=== PATIENT | male | born 2000 | race Caucasian/White ===

== ENCOUNTER 2022-11-10 21:56 | Observation (INO) ==
[2022-11-10] MEDS ORDERED: OPTIRAY 320 500ml IV ONE (22:23)
[2022-11-10 22:40] LABS: Basophils # (auto) 0.02 K/uL (0-0.2); Basophils % (auto) 0.3 %; Eosinophils # (auto) 0.09 K/uL (0-0.50); Eosinophils % (auto) 1.4 %; Hematocrit (blood only) 42.6 % (42.0-52.0); Hemoglobin 15.9 g/dl (14.0-18.0); Immature Granulocytes # (auto) 0.01 K/uL (0.01-0.20); Immature Granulocytes % (auto) 0.2 %; Lymphocytes # (auto) 2.05 K/uL (1.2-3.4); Lymphocytes % (auto) 32.4 %; Mean Corpuscular Hgb Conc 37.3 g/dL (32.0-36.0); Mean Platelet Volume 9.8 fL (9.4-12.4); Monocytes # (auto) 0.46 K/uL (0.11-0.59); Monocytes % (auto) 7.3 %; Neutrophils # (auto) 3.69 K/uL (1.40-6.50); Neutrophils % (auto) 58.4 %; Platelet Count 224 K/uL (130-400); RDW Coefficient of Variation 11.6 % (11.5-14.5); RDW Standard Deviation 34.8 fL (36.4-46.3); Red Blood Count 5.13 M/uL (4.70-6.10); White Blood Count 6.32 K/ul (4.8-10.8)
--- NOTE | 2022-11-10 22:41 | CT Scan Report ---
Exam(s): CT HEAD Without Contrast EXAM: CT Head Without Intravenous Contrast CLINICAL HISTORY: Reason for exam: neuro deficit, acute stroke suspected. TECHNIQUE: Axial computed tomography images of the head/brain without intravenous contrast. CTDI is 139.92 mGy and DLP is 2084.62 mGy-cm. Automated exposure control was utilized for the study. A dose lowering technique was utilized adhering to the principles of ALARA. Multiple repeat scans were performed, due to patient motion. COMPARISON: None. FINDINGS: Brain: No edema or acute infarct. No acute hemorrhage. No abnormal density in the brain parenchyma. Ventricles: No hydrocephalus or midline shift. Bones/joints: No skull fracture. Soft tissues: No scalp hematoma. Sinuses: Clear. Mastoid air cells: No mastoid effusion. IMPRESSION: 1. No acute infarct, bleed, or acute intracranial abnormality. 2. Normal exam. Communications: Call Doctor Stroke Electronically signed by: Lynn Lilly M.D. 11/10/22 22:40 PM
--- NOTE | 2022-11-10 22:52 | CT Scan Report ---
Exam(s): CTA HEAD With Contrast EXAM: CT Angiography Head With Intravenous Contrast CLINICAL HISTORY: Reason for exam: neuro deficit, acute stroke suspected. d/w : speech difficulty, and understanding difficulty now, as well, RUE weakness. TECHNIQUE: Axial computed tomographic angiography images of the head with intravenous contrast. CTDI is 170.81 mGy and DLP is 2632.53 mGy-cm. Automated exposure control was utilized for the study. A dose lowering technique was utilized adhering to the principles of ALARA. MIP reconstructed images were created and reviewed. Mild to moderate motion artifact. CONTRAST: 108 ml optiray 320 COMPARISON: None. FINDINGS: Right internal carotid artery: Patent. Right anterior cerebral artery: Patent. Right middle cerebral artery: Patent. Right posterior cerebral artery: Patent. Right vertebral artery: Patent. Left internal carotid artery: Patent. Left anterior cerebral artery: Patent. Left middle cerebral artery: Patent. Left posterior cerebral artery: Patent. Left vertebral artery: Patent. Basilar artery: Patent. Other: IMPRESSION: 1. No aneurysm or large vessel occlusion. 2. Limited evaluation due to patient motion. Communications: 11/10/22 22:51 Call Doctor Regarding Stroke. A telephone report of the findings was given to and confirmed by Dr. Shaffer on 11/10 22:51 (-04: 00) Electronically signed by: Lynn Lilly M.D. 11/10/22 22:51 PM
--- NOTE | 2022-11-10 22:54 | CT Scan Report ---
Exam(s): CTA NECK With Contrast EXAM: CT Neck With Intravenous Contrast CLINICAL HISTORY: Reason for exam: neuro deficit, acute stroke suspected. TECHNIQUE: Routine carotid CT protocol was performed with intravenous contrast. NASCET criteria using the distal ICAs for comparison were used for evaluation of stenoses. CTDI is 170.81 mGy and DLP is 2632.53 mGy-cm. Automated exposure control was utilized for the study. A dose lowering technique was utilized adhering to the principles of ALARA. CONTRAST: 108 mL Optiray 320 given IV. COMPARISON: None. FINDINGS: VASCULATURE: Right common carotid artery: Patent. Right internal carotid artery: Patent. Right vertebral artery: Patent. Left common carotid artery: Patent. Left internal carotid artery: Patent. Left vertebral artery: Patent. Other: IMPRESSION: 1. No dissection, occlusion, or significant stenosis. 2. d/w DrMarycruz CAROTID STENOSIS REFERENCE USING NASCET CRITERIA: % ICA stenosis = (1 - narrowest ICA diameter/diameter of distal cervical ICA) x 100. Mild - <50% stenosis. Moderate - 50-69% stenosis. Severe - 70-94% stenosis. Near occlusion - 95-99% stenosis. Occluded - 100% stenosis. Communications: Call Doctor Stroke Electronically signed by: Lynn Lilly M.D. 11/10/22 22:53 PM
[2022-11-10 22:59] LABS: Alanine Aminotransferase 17 U/L (7-52); Albumin Globulin Ratio 1.7 (0.9-2); Albumin Level 4.8 gm/dl (3.4-5.0); Alkaline Phosphatase 91 U/L (34-104); Anion Gap 15 (3-11); Aspartate Aminotransferase 18 U/L (13-39); Bilirubin,Total 1.1 mg/dl (0.2-1.0); Blood Urea Nitrogen 13 mg/dl (6-23); Calcium 9.9 mg/dl (8.6-10.3); Carbon Dioxide 21 mmol/L (21-32); Chloride 102 mmol/L (98-107); Est GFR (African American) 136.5 ml/min; Est GFR (Non-African American) 117.8 ml/min; Globulin 2.9 gm/dl (2.5-4.0); Glucose 103 mg/dl (70-99(Fasting)); Magnesium 1.8 mg/dl (1.7-2.4); Sodium 138 mmol/L (136-145); Total Protein 7.7 gm/dl (6.0-8.3)
[2022-11-10 23:04] LABS: Troponin I High Sensitivity 3.1 pg/ml (0-20)
[2022-11-10 23:07] LABS: INR 1.1 (0.9-1.1); Partial Thromboplastin Ratio 0.9; Partial Thromboplastin Time 25.9 Seconds (21.0-31.0); Prothrombin Time 11.9 Seconds (9.0-12.0)
[2022-11-10 23:17] LABS: Appearance Urine Clear (Clear); Bilirubin Urine Negative (Negative); Blood Urine Negative (Negative); Color Urine Yellow; Glucose Urine UA Negative (Negative); Ketones Urine 2+ (Negative); Leukocyte Esterase Urine Negative (Negative); Nitrite Urine Negative (Negative); Protein Urine Negative (Negative); Specific Gravity Urine 1.033 (1.000-1.030); Urobilinogen Urine Negative (Negative)
--- NOTE | 2022-11-10 23:32 | History & Physical Report ---
Date of Service November 10, 2022 Assessment & Plan (1) Combined receptive and expressive aphasia: Plan: 22-year-old male with a history of anxiety admitted to the hospital for stroke rule out with symptoms of expressive and receptive aphasia as well as right upper extremity weakness, status post TNKase. With some improvement in his aphasia and RUE weakness compared to on presentation to the ER. Last known well was 9:15 PM. After ER provider discussed case with [facility] telestroke neurologist Dr. Bourgeois and patient's care discussed with his parents, decision was made to initiate TNKase with some improvement in his symptoms. Some question of complex migraine versus stroke versus other etiology. Per [facility] Telestroke will need MRI brain, EEG, Neuro consult in the morning. No evidence of infectious or metabolic cause. UDS negative save for marijuana, per patient's friend who is in the room no known use today. Ethyl alcohol level negative, quad screen negative. Lipid panel, A1c, Echo with bubble study ordered. Unknown etiology of anion gap, ketonuria; BSG 103 in the ER. Lactate was 3.8, repeat of 1.9 without intervention. No localizable source of infection. (2) RUE weakness: Plan: See above, improved compared to exam per ER provider. (3) Hypokalemia: Plan: K of 3.0 on admission, Given IV repletion, follow up AM labs (4) Anxiety: Plan: History of per patient, not on medications at home. Plan Admission to ICU for monitoring post-TNKase, Neuro consult in AM, MRI and EEG History of Present Illness Chief Complaint: aphasia, RUE weakness, acute onset Primary Care Provider: [facility] [place] 22-year-old male past medical history significant for anxiety presented with a friend to the ER for altered mental status, slurred speech, and limb weakness. Last known well was 9:15 PM. Per friend, patient has not had any medication or illicit substance use to their knowledge today or in the recent past. In the ER patient noted to be hemodynamically stable, but with right upper extremity weakness and expressive/receptive aphasia. Stroke alert was called, case was discussed with telestroke provider Dr. Bourgeois. CT head, CTA head/neck without evidence of acute abnormality. Lab work notable for potassium of 3.0, anion gap of 15, 2+ ketonuria, UDS positive for marijuana. After discussion by ER provider and telestroke provider with patient's parents, decision was made to use TNKase in the event of an acute CVA. Hospitalist service was consulted for admission. On my interview patient still with some tripping over his words and slurring, however improved compared to signout from ER provider. States that he wonders if he "just had a bad anxiety attack or something". Reports feeling much better than he did earlier this evening. Denies any recent fevers, neck pain. Notes a headache at this time. Allergies Allergy/AdvReac Type Severity Reaction Status Date / Time No Known Allergies Allergy Unverified 11/10/22 22:24 Home Medications Medication Instructions Recorded Confirmed Type No Known Home Medications 11/10/22 11/10/22 History Past Med/Surg History Medical History Anxiety Surgical History No pertinent past surgical history Family History Denies family history of Stroke Social History Smoking Status: Never smoker Hx Alcohol Use: Yes Alcohol type: beer Hx Substance Use: Yes Last Used Substance: Days (ago) Substance Use Type Other:: "edible marijuana" Preferred Language: Sinhala Communication Ability: Effective Element Setter Required: No Beliefs That Will Affect Care: None Current Living Situation: Other Current Living Situation Comment: [employer] student, lives in apartment near campus with two roommates Other Information That Helps Us Care for You: No Feels Safe at Home: Yes Safety Concerns: Feels Safe At This Time Assistive Devices: Contacts Assistive Devices Comment: pt wearing contacts Review of Systems Review of Systems: All systems reviewed & are unremarkable except as noted in HPI & below Physical Exam Constitutional: well developed and well nourished; no acute distress Eyes: PERRL, conjunctivae normal, anicteric sclerae ENMT: external ear and nose normal, oropharynx normal Neck: trachea midline, no thyromegaly Respiratory: normal respiratory effort, lungs clear to auscultation Cardiovascular: RRR, no murmur, no edema Gastrointestinal (Abdomen): normal bowel sounds, soft, nontender, no hepatosplenomegaly Musculoskeletal: No cyanosis or clubbing, RUE 4/5 strength all other limbs 5/5 Skin: no rashes, warm and dry Neurologic: AAOx3, some expressive aphasia when asked to repeat a sentence PERRLA, EOMI, no nystagmus Bilateral UE, LE, and face without sensory deficits. DTRs normal. II-XII intact bilaterally. No pronator drift. No tremor. No ataxia. Psychiatric: alert, oriented to name and place Results & Data Results & Data Vital Signs (Past 12 Hours) Vital Signs Temp Pulse Resp BP Pulse Ox O2 Del Method 11/10/22 22:30 36.9 C 91 H 24 137/65 100 Room Air 11/10/22 22:12 85 11/10/22 22:00 94 H 18 136/78 98 Room Air PG Care Time/CCT Total # of Minutes Spent Total Time Spent with Patient: Total time spent is greater than 50% in coordination of care (as documented) at patient's floor/unit and/or counseling patient: Coding Level of Care Code 65879 INT INP/OBS CARE 3/75MIN Diagnoses Combined receptive and expressive aphasia R47.01 RUE weakness R29.898 Hypokalemia E87.6 Anxiety F41.9
[2022-11-10] MEDS ORDERED: SODIUM CHLORIDE 0.9% 10ML FLUSH IV STA (23:36)
[2022-11-10] MEDS ORDERED: STAT IV STA (23:36)
[2022-11-10 23:44] LABS: Amphetamines+Metham, Urine Neg (Neg); Barbiturates, Urine Neg (Neg); Benzodiazepine, Urine Neg (Neg); Cocaine, Urine Neg (Neg); MDMA (Ecstacy), Urine Neg (Neg); Methadone, Urine Neg (Neg); Opiate, Urine Neg (Neg); Phencyclidine, Urine Neg (Neg)
[2022-11-10] MEDS ORDERED: No Aspirin within 24hrs of THROMBOLYTIC-Stroke PO SCH (23:45)
[2022-11-10] MEDS ORDERED: TENECTEPLASE 24 MG in SYRINGE 0 ML IV ONE (23:46)
[2022-11-11 00:42] LABS: Influenza A virus by PCR Negative (Neg); Influenza B virus by PCR Negative (Neg); RSV by PCR Negative (Neg); SARS CoV2 RNA(COVID-19) Ceph NEGATIVE (Negative)
--- NOTE | 2022-11-11 00:54 | Emergency Department Note ---
Impression & Plan Stroke-like symptoms ED Provider Note ED Provider Note NAME: ALICIA COLLINS AGE:22 SEX: Male : 2000 ARRIVES VIA: Private vehicle INFORMANT: Patient, friend at bedside ED PROVIDER(s): Kristi Shaffer DO CHIEF COMPLAINT: Trouble speaking, right upper extremity weakness HPI: This is a 22-year-old male brought to the emergency department by a friend due to concern for headache and difficulty speaking. 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 He initially thought his symptoms were related to not having much to eat or drink throughout the day and it being later on in the evening as this was at 9:15 PM. Friend states that try to get him some food and something to drink and he vomited. He had minimal food and then complained of a headache and asked the friend to bring him to the emergency room. He states in route the patient's speech seemed normal however by arrival here he was stuttering/muttering and was noted by the triage nurse to have right upper extremity weakness. He was promptly brought back to room A1 and made a stroke alert. I saw the patient at bedside and he was unable to provide history and answered several questions inappropriately with "I am good". Friend denied any recent use of alcohol or drugs, denied any recent illness or injury. States to his knowledge the patient has no significant past medical history and takes no current medications. No history of headaches. PAST MEDICAL HISTORY:See Below PAST SURGICAL HISTORY:See Below FAMILY HISTORY:See Below SOCIAL HISTORY:See Below HOME MEDICATIONS:See Below ALLERGIES:See Below VITALS:See Below PHYSICAL EXAMINATION: GENERAL: alert, well appearing, well nourished, no distress, non-toxic EYE EXAM: normal conjunctiva, PERRL and EOM's grossly intact OROPHARYNX: no exudate, no erythema, lips, buccal mucosa, and tongue normal and mucous membranes are moist NECK: supple, no nuchal rigidity, no adenopathy, non-tender LUNGS: Clear to auscultation. Normal chest wall mechanics, no w/r/r HEART: no murmurs, S1 normal and S2 normal ABDOMEN: abdomen soft, non-tender, normo-active bowel sounds, no masses, no rebound or guarding. BACK: Back is symmetrical on inspection and there is no deformity, no midline tenderness, no CVA tenderness. SKIN: no rashes, petechiae, orbruising UPPER EXTREMITIES: upper extremities are grossly normal. FROM, nml pulses b/l. LOWER EXTREMITIES: No pitting edema. FROM, nml pulses b/l. NEURO EXAM: cranial nerves II-XII grossly intact, dysarthria and inappropriate a nswers to questions, no facial droop,weakness noted to RUE, no gross weakness of legs. Gross sensation intact. Drift noted with right upper extremity and minimally with right lower extremity when holding against gravity. Vital Signs: reviewed and remarkable Differential Diagnosis: Differential Diagnosis includes but is not limited to ischemic Stroke, hemorrhagic stroke, bells palsy, mass, neoplasm, migraine headache, seizure, subarachnoid hemorrhage, TIA, and transient global amnesia. MEDICAL DECISION MAKING: This is an otherwise healthy 22-year-old male brought in with strokelike symptoms. A stroke alert was called, labs drawn and sent, IV established, EKG and chest x-ray performed at bedside and interpreted by me and patient sent for urgent CT imaging. Case discussed with on-call teleneurologist from [place] who evaluated the patient via video at bedside. Upon additional discussion and after I had updated mom initially, the neurologist did call the patient's mother to discuss possible TNK administration as there was some concern for receptive aphasia and patient's ability to understand and give informed consent. Ultimately TNK given and patient did have improvement of symptoms. Patient was reevaluated multiple times by myself both before and after TNK administration. Patient remained hemodynamically stable throughout. Mother updated again over the phone while they were driving to our location. Case discussed with hospitalist for additional evaluation and management. Consultation(s): 2223: Discussed with Dr. Bourgeois, [place] telestroke neurologist. 2244: Discussed with Dr. Lilly, [facility]. 2256: Discussed with Dr. Bourgeois again. Given mom's phone to discuss potential for TNK administration. 2313: Discussed with Dr. Bourgeois again, mother gave permission to administer TNK. Following this recommends admission to ICU with MRI and EEG. ER Treatment Provided: See below 2247: Updated mother, Linnette, over the phone. No history of headaches. To their knowledge no recent trauma. They state patient takes no medications. 0007: Discussed with mother again. Patient now improved. Diagnostics Interpreted By Me: -ECG: Normal sinus at 76, normal axis, normal intervals, nonspecific ST/T wave changes -Cardiac Monitoring: An order was placed for continuous cardiac monitoring. The monitor shows a rate of 82 with normal sinus rhythm. -Laboratory studies: As stated above and show below. -Imaging studies: X-ray: I interpreted the following studies. Chest: A single view study of the chest was reviewed and was negative for cardiomegaly, focal infiltrate, effusion, pulmonary edema, or wide mediastinum. Triage Nursing Note Reviewed Prior/Outside Records Reviewed Critical Care: Critical care of 52 min performed to assess and manage high likelihood of life- threatening strokelike symptoms, involving labs and imaging performed with assessment to evaluate strokelike symptoms diagnosis with frequent reassessment. This time includes bedside time, treatment discussions with patient/family/consultants, documentation time and excludes procedure time. Past Med/Surg History Medical History (Updated 11/11/22 @ 00:54 by Kristi Shaffer DO) Anxiety Surgical History No pertinent past surgical history Family History Denies family history of Stroke Social History Smoking Status: Never smoker Preferred Language: Croatian Feels Safe at Home: Yes Allergies Allergies Allergy/AdvReac Type Severity Reaction Status Date / Time No Known Allergies Allergy Unverified 11/10/22 22:24 Home Meds Home Medications Medication Instructions Recorded Confirmed No Known Home Medications 11/10/22 11/10/22 Results & Data (ED) Vital Signs Vital Signs - 24 hr 11/10/22 22:00 11/10/22 22:12 11/10/22 22:30 Temperature 36.9 C Pulse Rate 94 H 85 91 H Pulse Rate [Apical] Pulse Rhythm [Apical] Respiratory Rate 18 24 Respiratory Effort / Characteristics Respiratory Depth Respiratory Pattern Blood Pressure 136/78 137/65 Blood Pressure [Right Arm] Blood Pressure Mean 97 89 Blood Pressure Mean [Right Arm] Blood Pressure Position [Right Arm] Pulse Oximetry 98 100 Oxygen Delivery Method Room Air Room Air Sepsis Recent Fever Within 48 Hours No Sepsis New/Unexplained Change in Mental Status No Sepsis Action Taken by Nursing No Action Required 11/11/22 00:00 11/11/22 00:15 11/11/22 00:30 Temperature Pulse Rate Pulse Rate [Apical] 68 86 80 Pulse Rhythm [Apical] Regular Regular Respiratory Rate 16 14 14 Respiratory Effort / Characteristics Non-Labored Spontaneous Non-Labored Spontaneous Respiratory Depth Normal Normal Respiratory Pattern Regular Regular Blood Pressure Blood Pressure [Right Arm] 127/76 123/78 135/73 Blood Pressure Mean Blood Pressure Mean [Right Arm] 93 93 93 Blood Pressure Position [Right Arm] Right Lateral Semi-fowlers Pulse Oximetry 98 96 100 Oxygen Delivery Method Room Air Room Air Room Air Sepsis Recent Fever Within 48 Hours Sepsis New/Unexplained Change in Mental Status Sepsis Action Taken by Nursing Laboratory Data 11/10/22 22:14 11/10/22 22:14 Lab Results 11/10/22 11/10/22 11/10/22 Range/Units 22:04 22:14 22:14 WBC 6.32 (4.8-10.8) K/ul RBC 5.13 (4.70-6.10) M/uL Hgb 15.9 (14.0-18.0) g/dl Hct 42.6 (42.0-52.0) % MCV 83.0 (80.0-100.0) fL MCH 31.0 (25.0-34.0) pg MCHC 37.3 H (32.0-36.0) g/dL RDW Std Deviation 34.8 L (36.4-46.3) fL RDW Coeff of Mohinder 11.6 (11.5-14.5) % Plt Count 224 (130-400) K/uL MPV 9.8 (9.4-12.4) fL Immature Gran % (Auto) 0.2 % Neut % (Auto) 58.4 % Lymph % (Auto) 32.4 % Kaufman % (Auto) 7.3 % Eos % (Auto) 1.4 % Baso % (Auto) 0.3 % Neut # (Auto) 3.69 (1.40-6.50) K/uL Lymph # (Auto) 2.05 (1.2-3.4) K/uL Kaufman # (Auto) 0.46 (0.11-0.59) K/uL Eos # (Auto) 0.09 (0-0.50) K/uL Baso # (Auto) 0.02 (0-0.2) K/uL Immature Gran # (Auto) 0.01 (0.01-0.20) K/uL PT 11.9 (9.0-12.0) Seconds INR 1.1 (0.9-1.1) APTT 25.9 (21.0-31.0) Seconds PTT Ratio 0.9 Sodium (136-145) mmol/L Potassium (3.5-5.1) mmol/L Chloride (98-107) mmol/L Carbon Dioxide (21-32) mmol/L Anion Gap (3-11) BUN (6-23) mg/dl Creatinine (0.6-1.4) mg/dl Est Cr Clr Drug Dosing Est GFR ( Amer) ml/min Est GFR (Non-Af Amer) ml/min BUN/Creatinine Ratio (10-20) Glucose (70-99(Fasting)) mg/dl POC Glucose 98 (70-99) mg/dl Lactate (0.4-2.0) mmol/L Calcium (8.6-10.3) mg/dl Magnesium (1.7-2.4) mg/dl Total Bilirubin (0.2-1.0) mg/dl AST (13-39) U/L ALT (7-52) U/L Alkaline Phosphatase (34-104) U/L Troponin I High Sens (0-20) pg/ml Total Protein (6.0-8.3) gm/dl Albumin (3.4-5.0) gm/dl Globulin (2.5-4.0) gm/dl Albumin/Globulin Ratio (0.9-2) Urine Color Urine Appearance (Clear) Urine pH (4.5-7.5) Ur Specific [place] (1.000-1.030) Urine Protein (Negative) Urine Glucose (UA) (Negative) Urine Ketones (Negative) Urine Blood (Negative) Urine Nitrite (Negative) Urine Bilirubin (Negative) Urine Urobilinogen (Negative) Ur Leukocyte Esterase (Negative) Urine Opiates Screen (Neg) Ur Methadone, Qual (Neg) Urine Barbiturates (Neg) Ur Phencyclidine (PCP) (Neg) U Amphetamin/Meth Scrn (Neg) MDMA (Ecstasy) Screen (Neg) U Benzodiazepines Scrn (Neg) Ur Cocaine Metabolite (Neg) U Marijuana (THC) Screen (Neg) Ethyl Alcohol mg/dL (<10.0) mg/dl SARS-CoV-2 (PCR) (Negative) Influenza Type A (PCR) (Neg) Influenza Type B (PCR) (Neg) RSV (RT-PCR) (Neg) Blood Type Antibody Screen 11/10/22 11/10/22 11/10/22 Range/Units 22:14 22:15 22:33 WBC (4.8-10.8) K/ul RBC (4.70-6.10) M/uL Hgb (14.0-18.0) g/dl Hct (42.0-52.0) % MCV (80.0-100.0) fL MCH (25.0-34.0) pg MCHC (32.0-36.0) g/dL RDW Std Deviation (36.4-46.3) fL RDW Coeff of Mohinder (11.5-14.5) % Plt Count (130-400) K/uL MPV (9.4-12.4) fL Immature Gran % (Auto) % Neut % (Auto) % Lymph % (Auto) % Kaufman % (Auto) % Eos % (Auto) % Baso % (Auto) % Neut # (Auto) (1.40-6.50) K/uL Lymph # (Auto) (1.2-3.4) K/uL [place]aufman # (Auto) (0.11-0.59) K/uL Eos # (Auto) (0-0.50) K/uL Baso # (Auto) (0-0.2) K/uL Immature Gran # (Auto) (0.01-0.20) K/uL PT (9.0-12.0) Seconds INR (0.9-1.1) APTT (21.0-31.0) Seconds PTT Ratio Sodium 138 (136-145) mmol/L Potassium 3.0 L (3.5-5.1) mmol/L Chloride 102 (98-107) mmol/L Carbon Dioxide 21 (21-32) mmol/L Anion Gap 15 H (3-11) BUN 13 (6-23) mg/dl Creatinine 0.93 (0.6-1.4) mg/dl Est Cr Clr Drug Dosing Not Reportable Est GFR ( Amer) 136.5 ml/min Est GFR (Non-Af Amer) 117.8 ml/min BUN/Creatinine Ratio 14.0 (10-20) Glucose 103 H (70-99(Fasting)) mg/dl POC Glucose (70-99) mg/dl Lactate 3.8 H* (0.4-2.0) mmol/L Calcium 9.9 (8.6-10.3) mg/dl Magnesium 1.8 (1.7-2.4) mg/dl Total Bilirubin 1.1 H (0.2-1.0) mg/dl AST 18 (13-39) U/L ALT 17 (7-52) U/L Alkaline Phosphatase 91 (34-104) U/L Troponin I High Sens 3.1 (0-20) pg/ml Total Protein 7.7 (6.0-8.3) gm/dl Albumin 4.8 (3.4-5.0) gm/dl Globulin 2.9 (2.5-4.0) gm/dl Albumin/Globulin Ratio 1.7 (0.9-2) Urine Color Urine Appearance (Clear) Urine pH (4.5-7.5) Ur Specific [place] (1.000-1.030) Urine Protein (Negative) Urine Glucose (UA) (Negative) Urine Ketones (Negative) Urine Blood (Negative) Urine Nitrite (Negative) Urine Bilirubin (Negative) Urine Urobilinogen (Negative) Ur Leukocyte Esterase (Negative) Urine Opiates Screen (Neg) Ur Methadone, Qual (Neg) Urine Barbiturates (Neg) Ur Phencyclidine (PCP) (Neg) U Amphetamin/Meth Scrn (Neg) MDMA (Ecstasy) Screen (Neg) U Benzodiazepines Scrn (Neg) Ur Cocaine Metabolite (Neg) U Marijuana (THC) Screen (Neg) Ethyl Alcohol mg/dL (<10.0) mg/dl SARS-CoV-2 (PCR) (Negative) Influenza Type A (PCR) (Neg) Influenza Type B (PCR) (Neg) RSV (RT-PCR) (Neg) Blood Type B Negative Antibody Screen NEGATIVE 11/10/22 11/10/22 11/10/22 Range/Units 22:33 23:00 23:00 WBC (4.8-10.8) K/ul RBC (4.70-6.10) M/uL Hgb (14.0-18.0) g/dl Hct (42.0-52.0) % MCV (80.0-100.0) fL MCH (25.0-34.0) pg MCHC (32.0-36.0) g/dL RDW Std Deviation (36.4-46.3) fL RDW Coeff of Mohinder (11.5-14.5) % Plt Count (130-400) K/uL MPV (9.4-12.4) fL Immature Gran % (Auto) % Neut % (Auto) % Lymph % (Auto) % Kaufman % (Auto) % Eos % (Auto) % Baso % (Auto) % Neut # (Auto) (1.40-6.50) K/uL Lymph # (Auto) (1.2-3.4) K/uL [place] # (Auto) (0.11-0.59) K/uL Eos # (Auto) (0-0.50) K/uL Baso # (Auto) (0-0.2) K/uL Immature Gran # (Auto) (0.01-0.20) K/uL PT (9.0-12.0) Seconds INR (0.9-1.1) APTT (21.0-31.0) Seconds PTT Ratio Sodium (136-145) mmol/L Potassium (3.5-5.1) mmol/L Chloride (98-107) mmol/L Carbon Dioxide (21-32) mmol/L Anion Gap (3-11) BUN (6-23) mg/dl Creatinine (0.6-1.4) mg/dl Est Cr Clr Drug Dosing Est GFR ( Amer) ml/min Est GFR (Non-Af Amer) ml/min BUN/Creatinine Ratio (10-20) Glucose (70-99(Fasting)) mg/dl POC Glucose (70-99) mg/dl Lactate (0.4-2.0) mmol/L Calcium (8.6-10.3) mg/dl Magnesium (1.7-2.4) mg/dl Total Bilirubin (0.2-1.0) mg/dl AST (13-39) U/L ALT (7-52) U/L Alkaline Phosphatase (34-104) U/L Troponin I High Sens (0-20) pg/ml Total Protein (6.0-8.3) gm/dl Albumin (3.4-5.0) gm/dl Globulin (2.5-4.0) gm/dl Albumin/Globulin Ratio (0.9-2) Urine Color Yellow Urine Appearance Clear (Clear) Urine pH 8.0 H (4.5-7.5) Ur Specific [place] 1.033 H (1.000-1.030) Urine Protein Negative (Negative) Urine Glucose (UA) Negative (Negative) Urine Ketones 2+ H (Negative) Urine Blood Negative (Negative) Urine Nitrite Negative (Negative) Urine Bilirubin Negative (Negative) Urine Urobilinogen Negative (Negative) Ur Leukocyte Esterase Negative (Negative) Urine Opiates Screen Neg (Neg) Ur Methadone, Qual Neg (Neg) Urine Barbiturates Neg (Neg) Ur Phencyclidine (PCP) Neg (Neg) U Amphetamin/Meth Scrn Neg (Neg) MDMA (Ecstasy) Screen Neg (Neg) U Benzodiazepines Scrn Neg (Neg) Ur Cocaine Metabolite Neg (Neg) U Marijuana (THC) Screen Pos H (Neg) Ethyl Alcohol mg/dL < 10.0 (<10.0) mg/dl SARS-CoV-2 (PCR) (Negative) Influenza Type A (PCR) (Neg) Influenza Type B (PCR) (Neg) RSV (RT-PCR) (Neg) Blood Type Antibody Screen 11/10/22 Range/Units 23:25 WBC (4.8-10.8) K/ul RBC (4.70-6.10) M/uL Hgb (14.0-18.0) g/dl Hct (42.0-52.0) % MCV (80.0-100.0) fL MCH (25.0-34.0) pg MCHC (32.0-36.0) g/dL RDW Std Deviation (36.4-46.3) fL RDW Coeff of Mohinder (11.5-14.5) % Plt Count (130-400) K/uL MPV (9.4-12.4) fL Immature Gran % (Auto) % Neut % (Auto) % Lymph % (Auto) % Kaufman % (Auto) % Eos % (Auto) % Baso % (Auto) % Neut # (Auto) (1.40-6.50) K/uL Lymph # (Auto) (1.2-3.4) K/uL [place] # (Auto) (0.11-0.59) K/uL Eos # (Auto) (0-0.50) K/uL Baso # (Auto) (0-0.2) K/uL Immature Gran # (Auto) (0.01-0.20) K/uL PT (9.0-12.0) Seconds INR (0.9-1.1) APTT (21.0-31.0) Seconds PTT Ratio Sodium (136-145) mmol/L Potassium (3.5-5.1) mmol/L Chloride (98-107) mmol/L Carbon Dioxide (21-32) mmol/L Anion Gap (3-11) BUN (6-23) mg/dl Creatinine (0.6-1.4) mg/dl Est Cr Clr Drug Dosing Est GFR ( Amer) ml/min Est GFR (Non-Af Amer) ml/min BUN/Creatinine Ratio (10-20) Glucose (70-99(Fasting)) mg/dl POC Glucose (70-99) mg/dl Lactate (0.4-2.0) mmol/L Calcium (8.6-10.3) mg/dl Magnesium (1.7-2.4) mg/dl Total Bilirubin (0.2-1.0) mg/dl AST (13-39) U/L ALT (7-52) U/L Alkaline Phosphatase (34-104) U/L Troponin I High Sens (0-20) pg/ml Total Protein (6.0-8.3) gm/dl Albumin (3.4-5.0) gm/dl Globulin (2.5-4.0) gm/dl Albumin/Globulin Ratio (0.9-2) Urine Color Urine Appearance (Clear) Urine pH (4.5-7.5) Ur Specific [place] (1.000-1.030) Urine Protein (Negative) Urine Glucose (UA) (Negative) Urine Ketones (Negative) Urine Blood (Negative) Urine Nitrite (Negative) Urine Bilirubin (Negative) Urine Urobilinogen (Negative) Ur Leukocyte Esterase (Negative) Urine Opiates Screen (Neg) Ur Methadone, Qual (Neg) Urine Barbiturates (Neg) Ur Phencyclidine (PCP) (Neg) U Amphetamin/Meth Scrn (Neg) MDMA (Ecstasy) Screen (Neg) U Benzodiazepines Scrn (Neg) Ur Cocaine Metabolite (Neg) U Marijuana (THC) Screen (Neg) Ethyl Alcohol mg/dL (<10.0) mg/dl SARS-CoV-2 (PCR) NEGATIVE (Negative) Influenza Type A (PCR) Negative (Neg) Influenza Type B (PCR) Negative (Neg) RSV (RT-PCR) Negative (Neg) Blood Type Antibody Screen Administered Medications Discontinued Medications Tenecteplase 24 mg/ Syringe 4.8 mls @ 57.6 mls/min IV NOW ONE; Protocol Stop: 11/10/22 23:47 Last Admin: 11/10/22 23:38 Dose: 57.6 mls/min Documented By: Co-signed By: OSVALDO Ioversol (Optiray 320 500ml) 108 ml IV ONCE ONE Stop: 11/10/22 22:24 Last Admin: 11/10/22 22:24 Dose: 108 ml Documented By: JOSE ARMANDO Sodium Chloride (Sodium Chloride 0.9% 10ml Flush) 20 ml IV NOW STA Stop: 11/10/22 23:37 Last Admin: 11/10/22 23:39 Dose: 20 ml Documented By: Imaging Data Radiologist's Impression: Head CT 11/10/22 22:09 CR Exam(s): CT HEAD Without Contrast EXAM: CT Head Without Intravenous Contrast CLINICAL HISTORY: Reason for exam: neuro deficit, acute stroke suspected. TECHNIQUE: Axial computed tomography images of the head/brain without intravenous contrast. CTDI is 139.92 mGy and DLP is 2084.62 mGy-cm. Automated exposure control was utilized for the study. A dose lowering technique was utilized adhering to the principles of ALARA. Multiple repeat scans were performed, due to patient motion. COMPARISON: None. FINDINGS: Brain: No edema or acute infarct. No acute hemorrhage. No abnormal density in the brain parenchyma. Ventricles: No hydrocephalus or midline shift. Bones/joints: No skull fracture. Soft tissues: No scalp hematoma. Sinuses: Clear. Mastoid air cells: No mastoid effusion. IMPRESSION: 1. No acute infarct, bleed, or acute intracranial abnormality. 2. Normal exam. Communications: Call Doctor Stroke Electronically signed by: Lynn Lilly M.D. 11/10/22 22:40 PM Head CTA 11/10/22 22:09 CR Exam(s): CTA HEAD With Contrast EXAM: CT Angiography Head With Intravenous Contrast CLINICAL HISTORY: Reason for exam: neuro deficit, acute stroke suspected. d/w Dr.: speech difficulty, and understanding difficulty now, as well, RUE weakness. TECHNIQUE: Axial computed tomographic angiography images of the head with intravenous contrast. CTDI is 170.81 mGy and DLP is 2632.53 mGy-cm. Automated exposure control was utilized for the study. A dose lowering technique was utilized adhering to the principles of ALARA. MIP reconstructed images were created and reviewed. Mild to moderate motion artifact. CONTRAST: 108 ml optiray 320 COMPARISON: None. FINDINGS: Right internal carotid artery: Patent. Right anterior cerebral artery: Patent. Right middle cerebral artery: Patent. Right posterior cerebral artery: Patent. Right vertebral artery: Patent. Left internal carotid artery: Patent. Left anterior cerebral artery: Patent. Left middle cerebral artery: Patent. Left posterior cerebral artery: Patent. Left vertebral artery: Patent. Basilar artery: Patent. Other: IMPRESSION: 1. No aneurysm or large vessel occlusion. 2. Limited evaluation due to patient motion. Communications: 11/10/22 22:51 Call Doctor Regarding Stroke. A telephone report of the findings was given to and confirmed by Dr. Shaffer on 11/10 22:51 (-04: 00) Electronically signed by: Lynn Lilly M.D. 11/10/22 22:51 PM Neck CTA 11/10/22 22:09 CR Exam(s): CTA NECK With Contrast EXAM: CT Neck With Intravenous Contrast CLINICAL HISTORY: Reason for exam: neuro deficit, acute stroke suspected. TECHNIQUE: Routine carotid CT protocol was performed with intravenous contrast. NASCET criteria using the distal ICAs for comparison were used for evaluation of stenoses. CTDI is 170.81 mGy and DLP is 2632.53 mGy-cm. Automated exposure control was utilized for the study. A dose lowering technique was utilized adhering to the principles of ALARA. CONTRAST: 108 mL Optiray 320 given IV. COMPARISON: None. FINDINGS: VASCULATURE: Right common carotid artery: Patent. Right internal carotid artery: Patent. Right vertebral artery: Patent. Left common carotid artery: Patent. Left internal carotid artery: Patent. Left vertebral artery: Patent. Other: IMPRESSION: 1. No dissection, occlusion, or significant stenosis. 2. d/w CAROTID STENOSIS REFERENCE USING NASCET CRITERIA: % ICA stenosis = (1 - narrowest ICA diameter/diameter of distal cervical ICA) x 100. Mild - <50% stenosis. Moderate - 50-69% stenosis. Severe - 70-94% stenosis. Near occlusion - 95-99% stenosis. Occluded - 100% stenosis. Communications: Call Doctor Stroke Electronically signed by: Lynn Lilly M.D. 11/10/22 22:53 PM Discharge Plan Visit Data Chief Complaint: Headache Stated Complaint: NAUSEA, MIGRAINE,VOMITING, SLURRED SPEECH, DROWSY ED Provider: Kristi Shaffer Discharge Problem: Stroke-like symptoms Forms Stand Alone Forms: My [place] Prescriptions Prescriptions: No Action No Known Home Medications Referrals Referrals: [facility] [Primary Care Provider] -
[2022-11-11] MEDS ORDERED: GADOBUTROL 65ML VIAL IV ONE (01:18)
--- NOTE | 2022-11-11 01:49 | Magnetic Resonance Report ---
Exam(s): MRI HEAD W/WO Contrast IV Amt: 9cc gadavist EXAM: MR Head Without and With Intravenous Contrast CLINICAL HISTORY: Reason for exam: r/o CVA. TECHNIQUE: Magnetic resonance images of the head/brain without and with intravenous contrast in multiple planes. Mild motion artifact. CONTRAST: Patient received 9cc gadavist of IV contrast COMPARISON: Head CT done earlier. FINDINGS: Brain: No edema or acute infarct. No acute or chronic hemorrhage. No abnormal signal in the brain parenchyma. No abnormal enhancement. Ventricles: No hydrocephalus or midline shift. Bones/joints: No calvarial lesions. Soft tissues: No scalp hematoma. Sinuses: Clear. Mastoid air cells: No mastoid effusion. IMPRESSION: 1. No abnormal enhancement, acute infarct, bleed, or acute intracranial abnormality. 2. Normal exam. Electronically signed by: Lynn Lilly M.D. 11/11/22 01:49 AM
[2022-11-11] MEDS: MAGNESIUM SULFATE / D5W 1 GM/100 ML BAG IV SCH ×2 (02:32→04:54)
[2022-11-11] MEDS: POTASSIUM CHLORIDE / WTR 10 MEQ/100 ML PLCT IV SCH ×4 (02:32→06:12)
--- NOTE | 2022-11-11 02:56 | Critical Care Consultation ---
Date of Consultation November 11, 2022 Assessment & Plan (1) Stroke-like symptoms: Impression: 22-year-old male presents to the ICU following strokelike symptoms in which she received TNKase. Now undergoing 24-hour monitoring in ICU for post TNKase protocol. Neuro - Acute stroke?Patient presented with right upper extremity weakness, aphasia, nausea, and headache. Symptoms now improved post TNKase. Patient is noted to have hyperreflexia in the lower extremities on exam - CT head, CTA head and neck negative for acute findings. - MRI head unremarkable - Patient did have elevated lactate, question seizure activity? Starting on empiric Keppra and EEG ordered - Follow-up TTE - Follow-up hemoglobin A1c ,follow-up lipid panel - Follow-up neurology recommendations. -Obtain CT head at 24 hours post TNKase - Continue to monitor in ICU. Cardiac - Hemodynamically stable, no prior cardiac history. Continue to monitor on telemetry. Respiratory - Currently maintaining oxygen saturations on room air. Patient did have episode of apnea in which he temporarily became hypoxic while sleeping. Now on nasal cannula. We will continuously monitoring on pulse ox. GI - Regular diet RENAL/LYTES - Creatinine within normal limits. Patient was hypokalemic with potassium of 3, likely explains leg cramping. Resuscitating with IV potassium. Follow-up routine BMP and replete electrolytes as indicated. - Strict I's and O's ENDO - No history of diabetes or thyroid disease. ICU hyperglycemic protocol HEME - H&H stable, no signs of bleeding. Monitor ID - No indication for infectious process. No leukocytosis, fevers, and procalcitonin negative. LINES/IV ACCESS - Peripheral IVs DVT PROPHYLAXIS - SCDs, No anticoagulation following TNKase administration Thank you for allowing us to participate in the care of this patient. Please refer to my attending physician's documentation for any further recommendations. (2) Thrombolytic therapy administered within 2 hours of onset of symptoms: (3) RUE weakness: (4) Combined receptive and expressive aphasia: (5) Hypokalemia: (6) Anxiety: History of Present Illness Attending Physician: Miracle Mendenhall, History of Present Illness Patient is a 22-year-old male that presents to the emergency department with strokelike symptoms. 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 Patient had nausea and vomiting at the time. Patient was noted to have right upper extremity weakness in the emergency department and stroke alert was initiated. He went for CT head and CTA head and neck which were negative for acute findings. He was evaluated by telestroke neurology, in which TNK was recommended. Patient now being admitted to the ICU for post 24- hour TNKase monitoring protocol. On arrival to the ICU the patient is alert and oriented without acute distress. He does have noted episodes of apnea while he is sleeping for which she is temporarily hypoxic, but is maintaining saturation on room air while awake. He is hemodynamically stable. Patient does state that he developed a headache earlier today. He remembers becoming very anxious earlier and having trouble finding words, which is never happened to him before. He did have a episode of vomiting as well. He denies any dizziness, visual changes, numbness or weakness, changes in gait. He denies any recent illness prior from today, fevers, congestion or sore throat, shortness of breath, cough, chest pain or palpitations, abdominal pain, diarrhea, swelling in hands or feet. He does report cramping of his right lower extremity. He is noted to have hyperreflexia of the lower extremities on exam but no clonus. He did undergo MRI in route to the ICU which was negative for acute findings. Patient was noted to have elevated lactate which is now cleared and unsure if this is seizure related, EEG pending. Started on empiric Keppra. Patient to remain in ICU for further management at this time. Allergies Allergy/AdvReac Type Severity Reaction Status Date / Time No Known Allergies Allergy Unverified 11/10/22 22:24 Home Medications Medication Instructions Recorded Confirmed Type No Known Home Medications 11/10/22 11/10/22 History Patient History Medical History Anxiety Surgical History No pertinent past surgical history Family History Denies family history of Stroke Social History Smoking Status: Never smoker Hx Alcohol Use: Yes Alcohol type: beer Hx Substance Use: Yes Last Used Substance: Days (ago) Substance Use Type Other:: "edible marijuana" Preferred Language: Kosovan Communication Ability: Effective [employer] Supervisor Required: No Beliefs That Will Affect Care: None Current Living Situation: Other Current Living Situation Comment: [employer] student, lives in apartment near campus with two roommates Other Information That Helps Us Care for You: No Feels Safe at Home: Yes Safety Concerns: Feels Safe At This Time Assistive Devices: Contacts Assistive Devices Comment: pt wearing contacts Review of Systems Review of Systems: All systems reviewed & are unremarkable except as noted in HPI & below Physical Exam Constitutional: cooperative; no acute distress Eyes: PERRL, conjunctivae normal, anicteric sclerae ENMT: external ear and nose normal, oropharynx normal Neck: trachea midline, no thyromegaly Respiratory: normal respiratory effort, lungs clear to auscultation Cardiovascular: RRR, no murmur, no edema Heart Sounds: normal S1 and normal S2; no murmur Vessels: no JVD Extremities: no edema Gastrointestinal (Abdomen): normal bowel sounds, soft, nontender, no hepatosplenomegaly Musculoskeletal: no cyanosis or clubbing, extremities motor strength 5/5 Skin: no rashes, warm and dry Neurologic: PERRL, EOMI, accommodation nl, no face palsy, no dysarthria Psychiatric: A+Ox3, euthymic affect Results & Data Results & Data Vital Signs (Past 12 Hours) Vital Signs Temp Pulse Pulse Resp BP BP Pulse Ox 11/11/22 02:05 36.4 C L 93 H 16 136/63 100 11/11/22 01:29 75 16 131/72 100 11/11/22 00:30 80 14 135/73 100 11/11/22 00:15 86 14 123/78 96 11/11/22 00:00 68 16 127/76 98 11/10/22 22:30 36.9 C 91 H 24 137/65 100 11/10/22 22:12 85 11/10/22 22:00 94 H 18 136/78 98 O2 Del Method 11/11/22 02:05 Room Air 11/11/22 01:29 Room Air 11/11/22 00:30 Room Air 11/11/22 00:15 Room Air 11/11/22 00:00 Room Air 11/10/22 22:30 Room Air 11/10/22 22:12 11/10/22 22:00 Room Air Diagnostic Findings EXAM: MR Head Without and With Intravenous Contrast CLINICAL HISTORY: Reason for exam: r/o CVA. TECHNIQUE: Magnetic resonance images of the head/brain without and with intravenous contrast in multiple planes. Mild motion artifact. CONTRAST: Patient received 9cc gadavist of IV contrast COMPARISON: Head CT done earlier. FINDINGS: Brain: No edema or acute infarct. No acute or chronic hemorrhage. No abnormal signal in the brain parenchyma. No abnormal enhancement. Ventricles: No hydrocephalus or midline shift. Bones/joints: No calvarial lesions. Soft tissues: No scalp hematoma. Sinuses: Clear. Mastoid air cells: No mastoid effusion. IMPRESSION: 1. No abnormal enhancement, acute infarct, bleed, or acute intracranial abnormality. 2. Normal exam. Electronically signed by: Lynn Lilly M.D. 11/11/22 01:49 AM EXAM: CT Head Without Intravenous Contrast CLINICAL HISTORY: Reason for exam: neuro deficit, acute stroke suspected. TECHNIQUE: Axial computed tomography images of the head/brain without intravenous contrast. CTDI is 139.92 mGy and DLP is 2084.62 mGy-cm. Automated exposure control was utilized for the study. A dose lowering technique was utilized adhering to the principles of ALARA. Multiple repeat scans were performed, due to patient motion. COMPARISON: None. FINDINGS: Brain: No edema or acute infarct. No acute hemorrhage. No abnormal density in the brain parenchyma. Ventricles: No hydrocephalus or midline shift. Bones/joints: No skull fracture. Soft tissues: No scalp hematoma. Sinuses: Clear. Mastoid air cells: No mastoid effusion. IMPRESSION: 1. No acute infarct, bleed, or acute intracranial abnormality. 2. Normal exam. EXAM: CT Angiography Head With Intravenous Contrast CLINICAL HISTORY: Reason for exam: neuro deficit, acute stroke suspected. d/w : speech difficulty, and understanding difficulty now, as well, RUE weakness. TECHNIQUE: Axial computed tomographic angiography images of the head with intravenous contrast. CTDI is 170.81 mGy and DLP is 2632.53 mGy-cm. Automated exposure control was utilized for the study. A dose lowering technique was utilized adhering to the principles of ALARA. MIP reconstructed images were created and reviewed. Mild to moderate motion artifact. CONTRAST: 108 ml optiray 320 COMPARISON: None. FINDINGS: Right internal carotid artery: Patent. Right anterior cerebral artery: Patent. Right middle cerebral artery: Patent. Right posterior cerebral artery: Patent. Right vertebral artery: Patent. Left internal carotid artery: Patent. Left anterior cerebral artery: Patent. Left middle cerebral artery: Patent. Left posterior cerebral artery: Patent. Left vertebral artery: Patent. Basilar artery: Patent. Other: IMPRESSION: 1. No aneurysm or large vessel occlusion. 2. Limited evaluation due to patient motion. EXAM: CT Neck With Intravenous Contrast CLINICAL HISTORY: Reason for exam: neuro deficit, acute stroke suspected. TECHNIQUE: Routine carotid CT protocol was performed with intravenous contrast. NASCET criteria using the distal ICAs for comparison were used for evaluation of stenoses. CTDI is 170.81 mGy and DLP is 2632.53 mGy-cm. Automated exposure control was utilized for the study. A dose lowering technique was utilized adhering to the principles of ALARA. CONTRAST: 108 mL Optiray 320 given IV. COMPARISON: None. FINDINGS: VASCULATURE: Right common carotid artery: Patent. Right internal carotid artery: Patent. Right vertebral artery: Patent. Left common carotid artery: Patent. Left internal carotid artery: Patent. Left vertebral artery: Patent. Other: IMPRESSION: 1. No dissection, occlusion, or significant stenosis. 2. d/w Coding Level of Care Code 60067 IN/OBS CONSULT LVL 3,45M Diagnoses Stroke-like symptoms R29.90 Thrombolytic therapy administered within 2 hours of onset of symptoms RUE weakness R29.898 Combined receptive and expressive aphasia R47.01 Hypokalemia E87.6 Anxiety F41.9 Time Spent (min) 45
[2022-11-11 05:46] LABS: Basophils # (auto) 0.02 K/uL (0-0.2); Basophils % (auto) 0.2 %; Eosinophils # (auto) 0.06 K/uL (0-0.50); Eosinophils % (auto) 0.7 %; Hematocrit (blood only) 40.7 % (42.0-52.0); Immature Granulocytes # (auto) 0.02 K/uL (0.01-0.20); Immature Granulocytes % (auto) 0.2 %; Lymphocytes # (auto) 1.17 K/uL (1.2-3.4); Lymphocytes % (auto) 12.8 %; Mean Corpuscular Hemoglobin 31.4 pg (25.0-34.0); Mean Corpuscular Hgb Conc 36.9 g/dL (32.0-36.0); Mean Corpuscular Volume 85.3 fL (80.0-100.0); Mean Platelet Volume 9.6 fL (9.4-12.4); Monocytes % (auto) 6.6 %; Neutrophils # (auto) 7.24 K/uL (1.40-6.50); Neutrophils % (auto) 79.5 %; Platelet Count 198 K/uL (130-400); RDW Coefficient of Variation 11.4 % (11.5-14.5); RDW Standard Deviation 35.3 fL (36.4-46.3); Red Blood Count 4.77 M/uL (4.70-6.10); White Blood Count 9.11 K/ul (4.8-10.8)
[2022-11-11 06:08] LABS: Albumin Level 4.2 gm/dl (3.4-5.0); BUN Creatinine Ratio 12.7 (10-20); Bilirubin Direct 0.2 mg/dl (0-0.2); Bilirubin,Total 1.2 mg/dl (0.2-1.0); Calcium 8.8 mg/dl (8.6-10.3); Chol HDL Ratio 3.5 (0-5); Creatinine Clr Calc Pharmacy 163.7 ml/min; Est GFR (African American) 149.8 ml/min; Est GFR (Non-African American) 129.3 ml/min; Potassium 4.1 mmol/L (3.5-5.1); Total Protein 6.8 gm/dl (6.0-8.3)
--- NOTE | 2022-11-11 07:01 | Critical Care Progress Note ---
Patient seen and examined. EMR reviewed. Discussed with critical care MARCO overnight and with family practice resident. Patient reviewed on multidisciplinary rounds. Discussed with patient's family at bedside. Imaging has not demonstrated any evidence of stroke. Continue monitor in the ICU post tPA administration for 24 hours. Follow-up CT scan this evening. If negative, the patient can be downgraded out of the ICU. Agree with neurology's assessment to work-up for alternative etiology of the patient's complaints. No evidence of bleeding complication associated with thrombolytics. Continue to follow. Questions were answered to the satisfaction of the family. Date of Service November 11, 2022 Assessment & Plan (1) Stroke-like symptoms: (2) Anxiety: (3) Hypokalemia: (4) RUE weakness: (5) Thrombolytic therapy administered within 2 hours of onset of symptoms: (6) Combined receptive and expressive aphasia: Plan Reason Critically Ill: 22-year-old male here with a history significant for anxiety who presented with stroke-like symptoms and who was admitted to ICU for monitoring post TNKase. Neuro - Stroke-Like Symptoms [facility] ICU: Negative * Imaging CTA head/neck and MRI Brain without acute abnormalities * TeleStroke consulted on admission, advised to proceed with TNKase at 23:38 * Symptoms improved after administration of thrombolytic * Neurology consulted * EEG to be completed today * Follow up CT noncon at 24 hr collin Cardiac - * Normotensive, EKG: normal sinus rhythm * Echo ordered * Lipid profile (Triglycerides, cholesterol, LDL, HDL) all WNL Respiratory - * No current respiratory distress * O2 sat 98% on room air. * Had apneic episode overnight, no known history of snoring/sleep apnea. * Maintain continuous pulse ox GI - * Passed dysphagia screen. Now regular diet. * Protonix 40 daily Renal/Lytes - Hypokalemia * Hypokalemic on arrival, received KCl. Potassium this a.m. 4.1. * Replace lytes as needed. - * No concerns at this time. * Lee catheter in place Endo - * Follow ICU hyperglycemic protocols Heme - * Stable H&H. Hemoglobin of 15 this a.m. ID - * WBC 9.11, afebrile since arrival * No concerns for infection at this point. Lines/IV Access - * PIVs intact. DVT Prophylaxis - * S/P TNKase 23:38 Thank you for allowing us to be part of this patient's care. Please refer to Dr. Hartley's documentation for any further recommendations. Admission and Anticipated Discharge Date Admission Date: November 11, 2022 Subjective Patient was seen and examined at bedside. His parents are both at bedside this morning. He notes that he is feeling better today, he does had a mild headache. He recalls that last night at about 7pm he started to feel nauseous and vomited, he felt "off" and had his friend bring him to the hospital. He also noted a intense headache on the left side of his head. He states that when they arrived at the hospital he could not speak in intelligible sentences. After evaluation in the ED he underwent TeleStroke evaluation- Head/Neck CTA, Brain MRI, and Head CT were all negative for acute findings/no dissection/occlusion/significant stenosis. His parents state that he has no prior medical diagnoses, he did have frequent headaches in childhood but these eventually resolved and did not require prescription medications. He is currently taking no medications at home. Denies dizziness/weakness, chest pain, shortness of breath, abdominal pain, nausea/vomiting. Review of Systems Review of Systems: As per HPI Physical Exam Constitutional: WD/WN, vitals as above Eyes: PERRL, conjunctivae normal, anicteric sclerae ENMT: external ear and nose normal, oropharynx normal Respiratory: normal respiratory effort, lungs clear to auscultation Cardiovascular: Normal rate, regular rhythm. No murmur, rubs, gallop. No lower extremity edema. Gastrointestinal (Abdomen): normal bowel sounds, soft, nontender, no hepatosplenomegaly Skin: no rashes, warm and dry Neurologic: normal touch/pain/proprioception, moves all extremities and awake; no focal motor deficits Psychiatric: A+Ox3, euthymic affect Genitourinary: Lee catheter in place. Results & Data Results & Data Vital Signs (Past 12 Hours) Vital Signs Temp Pulse Pulse Resp BP BP Pulse Ox 11/11/22 06:30 58 L 20 133/66 98 11/11/22 06:00 81 16 131/58 L 98 11/11/22 05:30 69 16 128/67 99 11/11/22 05:00 69 20 122/60 99 11/11/22 04:30 66 20 123/59 L 99 11/11/22 04:00 69 18 131/68 98 11/11/22 03:30 78 16 127/75 100 11/11/22 03:00 76 12 119/75 98 11/11/22 02:30 65 12 140/70 100 11/11/22 02:00 84 12 130/68 100 11/11/22 04:00 36.4 C L 74 22 131/68 99 11/11/22 02:05 36.4 C L 93 H 16 136/63 100 11/11/22 01:29 75 16 131/72 100 11/11/22 00:30 80 14 135/73 100 11/11/22 00:15 86 14 123/78 96 11/11/22 00:00 68 16 127/76 98 11/10/22 22:30 36.9 C 91 H 24 137/65 100 11/10/22 22:12 85 11/10/22 22:00 94 H 18 136/78 98 O2 Del Method O2 Flow Rate 11/11/22 06:30 Nasal Cannula 2 11/11/22 06:00 Nasal Cannula 2 11/11/22 05:30 Nasal Cannula 2 11/11/22 05:00 Nasal Cannula 2 11/11/22 04:30 Nasal Cannula 2 11/11/22 04:00 Nasal Cannula 2 11/11/22 03:30 Nasal Cannula 2 11/11/22 03:00 Nasal Cannula 2 11/11/22 02:30 Room Air 11/11/22 02:00 Room Air 11/11/22 04:00 Nasal Cannula 2 11/11/22 02:05 Room Air 11/11/22 01:29 Room Air 11/11/22 00:30 Room Air 11/11/22 00:15 Room Air 11/11/22 00:00 Room Air 11/10/22 22:30 Room Air 11/10/22 22:12 11/10/22 22:00 Room Air Diagnostic Findings Chest X-Ray 11/10/22 22:09 XR chest 1V portable HISTORY: neuro deficit, acute stroke suspected COMPARISON: None. FINDINGS: The lungs are clear. Cardiac silhouette is normal in size. No pleural effusions. No pneumothorax. IMPRESSION: No acute process. ACT 112: Negative or not required by law. Electronically signed by: Cuong Grigsby M.D. 11/11/2022 7:[address] 11/10/22 22:09 CR Exam(s): CT HEAD Without Contrast EXAM: CT Head Without Intravenous Contrast CLINICAL HISTORY: Reason for exam: neuro deficit, acute stroke suspected. TECHNIQUE: Axial computed tomography images of the head/brain without intravenous contrast. CTDI is 139.92 mGy and DLP is 2084.62 mGy-cm. Automated exposure control was utilized for the study. A dose lowering technique was utilized adhering to the principles of ALARA. Multiple repeat scans were performed, due to patient motion. COMPARISON: None. FINDINGS: Brain: No edema or acute infarct. No acute hemorrhage. No abnormal density in the brain parenchyma. Ventricles: No hydrocephalus or midline shift. Bones/joints: No skull fracture. Soft tissues: No scalp hematoma. Sinuses: Clear. Mastoid air cells: No mastoid effusion. IMPRESSION: 1. No acute infarct, bleed, or acute intracranial abnormality. 2. Normal exam. Communications: Call Doctor Stroke Electronically signed by: Lynn Lilly M.D. 11/10/22 22:40 PM Head CTA 11/10/22 22:09 CR Exam(s): CTA HEAD With Contrast EXAM: CT Angiography Head With Intravenous Contrast CLINICAL HISTORY: Reason for exam: neuro deficit, acute stroke suspected. d/w Dr.: speech difficulty, and understanding difficulty now, as well, RUE weakness. TECHNIQUE: Axial computed tomographic angiography images of the head with intravenous contrast. CTDI is 170.81 mGy and DLP is 2632.53 mGy-cm. Automated exposure control was utilized for the study. A dose lowering technique was utilized adhering to the principles of ALARA. MIP reconstructed images were created and reviewed. Mild to moderate motion artifact. CONTRAST: 108 ml optiray 320 COMPARISON: None. FINDINGS: Right internal carotid artery: Patent. Right anterior cerebral artery: Patent. Right middle cerebral artery: Patent. Right posterior cerebral artery: Patent. Right vertebral artery: Patent. Left internal carotid artery: Patent. Left anterior cerebral artery: Patent. Left middle cerebral artery: Patent. Left posterior cerebral artery: Patent. Left vertebral artery: Patent. Basilar artery: Patent. Other: IMPRESSION: 1. No aneurysm or large vessel occlusion. 2. Limited evaluation due to patient motion. Communications: 11/10/22 22:51 Call Doctor Regarding Stroke. A telephone report of the findings was given to and confirmed by Dr. Shaffer on 11/10 22:51 (-04: 00) Electronically signed by: Lynn Lilly M.D. 11/10/22 22:51 PM Neck CTA 11/10/22 22:09 CR Exam(s): CTA NECK With Contrast EXAM: CT Neck With Intravenous Contrast CLINICAL HISTORY: Reason for exam: neuro deficit, acute stroke suspected. TECHNIQUE: Routine carotid CT protocol was performed with intravenous contrast. NASCET criteria using the distal ICAs for comparison were used for evaluation of stenoses. CTDI is 170.81 mGy and DLP is 2632.53 mGy-cm. Automated exposure control was utilized for the study. A dose lowering technique was utilized adhering to the principles of ALARA. CONTRAST: 108 mL Optiray 320 given IV. COMPARISON: None. FINDINGS: VASCULATURE: Right common carotid artery: Patent. Right internal carotid artery: Patent. Right vertebral artery: Patent. Left common carotid artery: Patent. Left internal carotid artery: Patent. Left vertebral artery: Patent. Other: IMPRESSION: 1. No dissection, occlusion, or significant stenosis. 2. d/w CAROTID STENOSIS REFERENCE USING NASCET CRITERIA: % ICA stenosis = (1 - narrowest ICA diameter/diameter of distal cervical ICA) x 100. Mild - <50% stenosis. Moderate - 50-69% stenosis. Severe - 70-94% stenosis. Near occlusion - 95-99% stenosis. Occluded - 100% stenosis. Communications: Call Doctor Stroke Electronically signed by: Lynn Lilly M.D. 11/10/22 22:53 PM Liver Ultrasound 11/11/22 02:37 ABDOMINAL ULTRASOUND, RIGHT UPPER QUADRANT HISTORY: elevated bilirubin and LA. COMPARISON: None. FINDINGS: Pancreas: The pancreatic tail is obscured by overlying bowel gas. The remaining portions of the pancreas are within normal limits. Liver: Unremarkable. Gallbladder: No gallbladder wall thickening. No gallstones. CBD: 3 mm. Right kidney: No hydronephrosis. IMPRESSION: No significant abnormality identified within the right upper quadrant. ACT 112: Negative or not required by law. Electronically signed by: Cuong Grigsby M.D. 11/11/2022 7:29 AM Brain MRI 11/11/22 07:00 Exam(s): MRI HEAD W/WO Contrast IV Amt: 9cc gadavist EXAM: MR Head Without and With Intravenous Contrast CLINICAL HISTORY: Reason for exam: r/o CVA. TECHNIQUE: Magnetic resonance images of the head/brain without and with intravenous contrast in multiple planes. Mild motion artifact. CONTRAST: Patient received 9cc gadavist of IV contrast COMPARISON: Head CT done earlier. FINDINGS: Brain: No edema or acute infarct. No acute or chronic hemorrhage. No abnormal signal in the brain parenchyma. No abnormal enhancement. Ventricles: No hydrocephalus or midline shift. Bones/joints: No calvarial lesions. Soft tissues: No scalp hematoma. Sinuses: Clear. Mastoid air cells: No mastoid effusion. IMPRESSION: 1. No abnormal enhancement, acute infarct, bleed, or acute intracranial abnormality. 2. Normal exam. Electronically signed by: Lynn Lilly M.D. 11/11/22 01:49 AM Resident Activity Tracking Resident Involvement: Resident Care Provided Care Provided: Adult [facility] Medicine
[2022-11-11 07:30] LABS: Estimated Average Glucose 94 mg/dl; Hemoglobin A1C 4.9 % (4.5-5.6)
--- NOTE | 2022-11-11 07:31 | Ultrasound Report ---
ABDOMINAL ULTRASOUND, RIGHT UPPER QUADRANT HISTORY: elevated bilirubin and LA. COMPARISON: None. FINDINGS: Pancreas: The pancreatic tail is obscured by overlying bowel gas. The remaining portions of the pancr eas are within normal limits. Liver: Unremarkable. Gallbladder: No gallbladder wall thickening. No gallstones. CBD: 3 mm. Right kidney: No hydronephrosis. IMPRESSION: No significant abnormality identified within the right upper quadrant. ACT 112: Negative or not required by law. Electronically signed by: Cuong Grigsby M.D. 11/11/2022 7:29 AM
[2022-11-11] MEDS: ICU Protocol for HYPERglycemia SCH ×4 (07:32→21:10)
--- NOTE | 2022-11-11 07:43 | XRay Report ---
XR chest 1V portable HISTORY: neuro deficit, acute stroke suspected COMPARISON: None. FINDINGS: The lungs are clear. Cardiac silhouette is normal in size. No pleural effusions. No pneumot horax. IMPRESSION: No acute process. ACT 112: Negative or not required by law. Electronically signed by: Cuong Grigsby M.D. 11/11/2022 7:42 AM
--- NOTE | 2022-11-11 08:33 | Electrocardiogram Report ---
Test Reason : Blood Pressure : / mmHG Vent. Rate : 076 BPM Atrial Rate : 076 BPM P-R Int : 130 ms QRS Dur : 104 ms QT Int : 390 ms P-R-T Axes : 032 086 031 degrees QTc Int : 438 ms Normal sinus rhythm with sinus arrhythmia Normal ECG No previous ECGs available Confirmed by Sajan Dillon ([id number]) on 11/11/2022 8:32:56 AM Referred By: REFERRED SELF Confirmed By:Sajan Dillon
--- NOTE | 2022-11-11 09:52 | Neurology Consultation ---
Date of Consultation November 11, 2022 Assessment & Plan (1) Stroke-like symptoms: (2) Thrombolytic therapy administered within 2 hours of onset of symptoms: (3) Complicated migraine: Plan 22-year-old college student presenting with strokelike symptoms potentially localizing to the left MCA territory, presenting with elements of aphasia and right hemiparesis, but in the context of headache, history of intermittent headaches, positive urine toxicology screen for THC, possible childhood migraine. In light of patient's clinical presentation, he did have a telestroke consultation and was administered TNKase. He is asymptomatic this morning other than low-grade headache. He has had an extensive unremarkable neuroimaging evaluation including CT of the head, CT angiography of the head and neck, and brain MRI. At this point, I suspect a stroke mimic, rather than actual thrombotic ischemic stroke in this patient. Complicated migraine seems possible if not likely. No reported signs or symptoms suggestive of seizures. Nonetheless, a TIA may not be completely excluded, however. Follow-up for the results of echocardiogram. Would recommend a hypercoagulable panel. (However, no prior history of DVT, PE, or thromboembolic disease. No family history of coagulopathy.) Should have a repeat CT of the head completed 24 hours after administration of TNKase, follow-up with results. I see that an EEG has been ordered. I do not object to this test although I think the likelihood of unrecognized subclinical seizure activity is low in this patient. I see that he received 2 g of IV Keppra. I would not recommend continuing an anticonvulsant unless if the above EEG is suggestive of seizure activity. Daily low-dose aspirin can be started 24 hours after administration of TNKase, assuming no evidence of hemorrhage on follow-up CT of the head. I do not object to daily low-dose aspirin therapy going forward in this patient, at least at this time. However, it remains to be determined whether or not he would need long-term antiplatelet or anticoagulant treatment. Furthermore, given the possibility of complicated migraine, we may want to consider starting a preventative medication depending on his status going forward as well. I would not start anything acutely for this purpose, at least at this time. Patient may follow-up with me or an MARCO in clinic in 2 to 3 weeks after discharge. History of Present Illness Reason for Consultation: concern for stroke, received TNKase Requesting Physician: Miracle Coleman DO Attending Physician: Wesley Ugarte MD History of Present Illness The patient is a 22-year-old male college student who presented to the emergency department overnight with a complaint of headache and difficulty speaking. He had been out with his [employer] singing club at time of symptom onset. He was noted to have right arm weakness as well. He was normotensive and afebrile. He did undergo an urgent evaluation for possible stroke in light of the character of his symptoms. A CT angiogram of the head and neck were unremarkable. A brain MRI was normal as well. He did have a telestroke consultation and given his clinical presentation, TNKase was administered. He has subsequently been admitted to the intensive care unit for additional monitoring and testing. I did evaluate the patient this morning with both of his parents at bedside, they drove in from [place]. The patient is a bit somnolent this morning, he has just undergone an echocardiogram, results pending at this time. The patient does endorse a history of intermittent headache, perhaps 1 or 2 episodes per month. No known history of migraine although according to his mother, he did frequently experience headaches and carsickness in childhood. No family history of migraine. No known history of seizures in this patient. No history of recent head or neck trauma. The patient has been otherwise feeling well, no recent illness. Lab evaluation revealed a mild elevation in bilirubins, a urine toxicology screen was positive for marijuana, follow-up testing is pending. Ethyl alcohol negative. Testing for influenza, RSV, and SARS-CoV-2 negative. Electrocardiogram has revealed a normal sinus rhythm. Upon further questioning of the patient and his parents at bedside, he has not had any similar episodes previously. Again, he is generally healthy, with no active chronic health problems. He is doing well academically and is studying communications. Allergies Allergy/AdvReac Type Severity Reaction Status Date / Time No Known Allergies Allergy Unverified 11/10/22 22:24 Home Medications Medication Instructions Recorded Confirmed Type No Known Home Medications 11/10/22 11/10/22 History Patient History Medical History Anxiety Surgical History No pertinent past surgical history Family History Denies family history of Stroke Social History Smoking Status: Never smoker Hx Alcohol Use: Yes Alcohol type: beer Hx Substance Use: Yes Last Used Substance: Days (ago) Substance Use Type Other:: "edible marijuana" Preferred Language: Ivorian Communication Ability: Effective Coding Compliance Specialist Required: No Beliefs That Will Affect Care: None Current Living Situation: Other Current Living Situation Comment: [employer] student, lives in apartment near campus with two roommates Other Information That Helps Us Care for You: No Feels Safe at Home: Yes Safety Concerns: Feels Safe At This Time Assistive Devices: Contacts Assistive Devices Comment: pt wearing contacts Review of Systems Constitutional: no fever and no chills Eyes: no blind spots and no diplopia Ear, Nose, Mouth, Throat: no ear pain, no tinnitus and no hearing loss Respiratory: no cough and no dyspnea Cardiovascular: no chest pain and no palpitations Gastrointestinal: no nausea and no vomiting Genitourinary: no dysuria or no urinary incontinence Musculoskeletal: no back pain, no neck pain and no myalgia Integumentary: no rash and no lesions Neurologic: as per Subjective / HPI Psychiatric: no depression and no anxiety Hematologic / Lymphatic: no easy bleeding and no easy bruising Exam (Neuro) Constitutional: well developed and well nourished; no acute distress Eyes: normal visual sandoval by confrontation, PERRL, normal accommodation and EOM intact bilaterally; no fundoscopic abnormality, no nystagmus and no papilledema Cardiovascular: Vessels: normal carotid upstroke; no carotid bruit Neurologic: Oriented to:: Person, Place and Time Memory: Short Term Intact and Remote Intact Attention: Span Intact and Concentration Intact Language: Naming Objects and Repeating Phrases Speech Fluency: negative Dysarthria Speech Aphasia: negative Aphasia Fund of Knowledge: Current Events, Past History and Vocabulary Cranial Nerves: Normal II (Visual sandoval full to confrontation, visual acuity normal), III, IV, (Pupils equal round reactive to light and accommodation, eye movements normal), V (Facial sensation intact), VII (There is no facial droop or weakness), VIII (Hearing intact), IX, X (Palate elevates to midline), XI (Shoulder shrug intact) and XII (Tongue protrudes to midline) Motor Strength: Normal Lower Extremities and Normal Upper Extremities; negative Pronator Drift Motor Tone: Normal Lower Extremities and Normal Upper Extremities Muscle Bulk/Involuntary Movements: No Involuntary Movements; negative Muscle Atrophy Sensation: Light Touch Intact, Pain/Temperature Intact, Vibration Intact and Proprioception Intact Coordination: Normal; negative Limited Balance, Dysdiadochokinesia, Finger-Nose Abnormal or Heel-Cobian Abnormal Deep Tendon Reflexes: Rt Triceps: 2+, Lt Triceps: 2+, Rt Biceps: 2+, Lt Biceps: 2+, Rt Brachioradialis: 2+, Lt Brachioradialis: 2+, Rt Patellar: 2+, Lt Patellar: 2+, Rt Ankle: 2+ and Lt Ankle: 2+ Special Tests: negative Babinski Present Gait: Normal Station and Gait Results & Data Vital Signs (Past 12 Hours) Vital Signs Temp Pulse Pulse Resp BP BP BP 11/11/22 09:00 60 19 118/50 L 11/11/22 08:00 62 20 105/57 L 11/11/22 07:30 90 20 123/69 11/11/22 07:00 36.5 C 60 19 124/54 L 11/11/22 06:30 58 L 20 133/66 11/11/22 06:00 81 16 131/58 L 11/11/22 05:30 69 16 128/67 11/11/22 05:00 69 20 122/60 11/11/22 04:30 66 20 123/59 L 11/11/22 04:00 69 18 131/68 11/11/22 03:30 78 16 127/75 11/11/22 03:00 76 12 119/75 11/11/22 02:30 65 12 140/70 11/11/22 02:00 84 12 130/68 11/11/22 04:00 36.4 C L 74 22 131/68 11/11/22 02:05 36.4 C L 93 H 16 136/63 11/11/22 01:29 75 16 131/72 11/11/22 00:30 80 14 135/73 11/11/22 00:15 86 14 123/78 11/11/22 00:00 68 16 127/76 11/10/22 22:30 36.9 C 91 H 24 137/65 11/10/22 22:12 85 11/10/22 22:00 94 H 18 136/78 Pulse Ox O2 Del Method O2 Flow Rate 04/07/23 09:00 98 Room Air 11/11/22 08:00 98 Room Air 11/11/22 07:30 98 Room Air 11/11/22 07:00 99 Room Air 11/11/22 06:30 98 Nasal Cannula 2 11/11/22 06:00 98 Nasal Cannula 2 11/11/22 05:30 99 Nasal Cannula 2 11/11/22 05:00 99 Nasal Cannula 2 11/11/22 04:30 99 Nasal Cannula 2 11/11/22 04:00 98 Nasal Cannula 2 11/11/22 03:30 100 Nasal Cannula 2 11/11/22 03:00 98 Nasal Cannula 2 11/11/22 02:30 100 Room Air 11/11/22 02:00 100 Room Air 11/11/22 04:00 99 Nasal Cannula 2 11/11/22 02:05 100 Room Air 11/11/22 01:29 100 Room Air 11/11/22 00:30 100 Room Air 11/11/22 00:15 96 Room Air 11/11/22 00:00 98 Room Air 11/10/22 22:30 100 Room Air 11/10/22 22:12 11/10/22 22:00 98 Room Air Laboratory Results WBC 9.11, hemoglobin 15.0, hematocrit 40.7, platelet count 198, sodium 135, potassium 4.1, BUN 10, creatinine 0.79, glucose 104, hemoglobin A1c 4.9, calcium 8.8, magnesium 1.8, total bilirubin 1.2, AST 17, ALT 15, ammonia 37.0, triglycerides 52, cholesterol 117, LDL 74, VLDL 10, HDL 33, urinalysis negative, urine toxicology screen positive for THC, ethyl alcohol less than 10.0, SARS-CoV-2, influenza, and RSV testing negative Diagnostic Findings CT of the head including CT angiography of the head and neck unremarkable, as described in history of present illness. Follow-up brain MRI normal as well. I independently reviewed these images. No abnormal restricted diffusion. No pathologic blooming artifact. No parenchymal signal abnormality on T2/FLAIR weighted sequences. No abnormal postcontrast enhancement. No hydrocephalus. No Chiari malformation. No electrocardiogram reveals a normal sinus rhythm with sinus arrhythmia, 76 bpm. PG Care Time/CCT Total # of Minutes Spent Total Time Spent with Patient: Total time spent is greater than 50% in coordination of care (as documented) at patient's floor/unit and/or counseling patient: 80 minutes Coding Level of Care Code 11197 INT INP/OBS CARE 375MIN Diagnoses Stroke-like symptoms R29.90 Thrombolytic therapy administered within 2 hours of onset of symptoms Complicated migraine G43.109
[2022-11-11] MEDS ORDERED: PANTOprazole 40 MG in SYRINGE 0 ML IV SCH (11:00)
--- NOTE | 2022-11-11 11:48 | XCELERA ---
[id number]
--- NOTE | 2022-11-11 12:03 | Electroencephalogram ---
EEG Procedure Note Date of Service November 11, 2022 Start / End Times Start Time: 11:31 AM End Time: 11:51 AM Referring Physician DWAYNE Swann History Strokelike symptoms, rule out seizure activity Home Medication List Medication Instructions Recorded Confirmed Type No Known Home Medications 11/10/22 11/10/22 History Inpatient Medication List Pantoprazole Sodium 40 mg/ (Syringe) 10 mls @ 5 mls/min IV DAILY@1100 [facility] Stop: 12/11/22 10:59 Last Admin: 11/11/22 11:00 Dose: 5 mls/min Documented By: TOSHIA Miscellaneous (Icu Protocol For Hyperglycemia) 1 each N/A ACHS [facility] Stop: 11/13/22 07:29 Last Admin: 11/11/22 07:32 Dose: Not Given Documented By: TOSHIA Discontinued Medications Gadobutrol (Gadobutrol 65ml Vial) 9 ml IV ONCE ONE Stop: 11/11/22 01:19 Last Admin: 11/11/22 01:19 Dose: 9 ml Documented By: NICK Tenecteplase 24 mg/ Syringe 4.8 mls @ 57.6 mls/min IV NOW ONE; Protocol Stop: 11/10/22 23:47 Last Admin: 11/10/22 23:38 Dose: 57.6 mls/min Documented By: Co-signed By: OSVALDO Potassium Chloride (K Harjeet / Wtr) 10 meq in 100 mls @ 100 mls/hr IV Q1H [facility]; Protocol Stop: 11/11/22 04:59 Last Infusion: 11/11/22 07:15 Dose: 0 mls/hr Documented By: Admin: 11/11/22 06:12 Dose: 100 mls/hr Documented By: Infusion: 11/11/22 05:52 Dose: 100 mls/hr Documented By: Admin: 11/11/22 04:52 Dose: 100 mls/hr Documented By: Infusion: 11/11/22 04:51 Dose: 100 mls/hr Documented By: Admin: 11/11/22 03:51 Dose: 100 mls/hr Documented By: Infusion: 11/11/22 03:32 Dose: 100 mls/hr Documented By: Admin: 11/11/22 02:32 Dose: 100 mls/hr Documented By: SUSY Magnesium Sulfate/Dextrose (Magnesium Sulfate / D5w) 1 gm in 100 mls @ 50 mls/hr IV Q2H [facility] Stop: 11/11/22 05:14 Last Infusion: 11/11/22 07:11 Dose: 0 mls/hr Documented By: Admin: 11/11/22 04:54 Dose: 50 mls/hr Documented By: Infusion: 11/11/22 04:32 Dose: 50 mls/hr Documented By: Admin: 11/11/22 02:32 Dose: 50 mls/hr Documented By: SUSY Levetiracetam 2,000 mg/ Sodium (Chloride) 270 mls @ 999 mls/hr IV NOW STA Stop: 11/11/22 02:33 Last Infusion: 11/11/22 03:33 Dose: 0 mls/hr Documented By: Admin: 11/11/22 02:50 Dose: 999 mls/hr Documented By: SUSY Ioversol (Optiray 320 500ml) 108 ml IV ONCE ONE Stop: 11/10/22 22:24 Last Admin: 11/10/22 22:24 Dose: 108 ml Documented By: JOSE ARMANDO Miscellaneous (Stat Iv) 1 each N/A NOW STA Stop: 11/10/22 23:37 Last Admin: 11/11/22 02:50 Dose: Not Given Documented By: SUSY Sodium Chloride (Sodium Chloride 0.9% 10ml Flush) 20 ml IV NOW STA Stop: 11/10/22 23:37 Last Admin: 11/10/22 23:39 Dose: 20 ml Documented By: Description This is a 21 electrode EEG with a single channel dedicated to limited EKG. The electrodes were placed in accordance with the International 10-20 system. There is a well-developed posterior dominant rhythm of 10 Hz which is symmetrically distributed and attenuates with eye opening. There is a normal anterior to posterior organization. Photic stimulation is unremarkable. Hyperventilation is not performed. There is a symmetric frontal beta rhythm. There is occasional movement artifact throughout the study. There is no focal slowing. There are no epileptiform abnormalities. There are no sleep changes. Interpretation Normal-appearing awake/drowsy EEG. A normal EEG does not completely exclude a diagnosis of epilepsy. Further clinical correlation may be needed. [facility] Procedure Codes Indication for Procedure (1) Complicated migraine: (2) Stroke-like symptoms: (3) RUE weakness: (4) Combined receptive and expressive aphasia: Neurology Neurology: 35806 EEG include record awake & drowsy
--- NOTE | 2022-11-11 13:32 | Hospitalist Progress Note ---
Date of Service November 11, 2022 Assessment & Plan (1) Combined receptive and expressive aphasia: Plan: This could be due to complicated migraine. No CVA seen on brain MRI. He did receive thrombolytic therapy. Repeat head CT scan this evening. Neurology consultation and recommendations appreciated. We will start low-dose aspirin therapy tomorrow, November 12 (2) RUE weakness: Plan: Resolved. Was present on admission (3) Hypokalemia: Plan: Corrected with IV supplementation. Serial labs (4) Anxiety: Plan: We will treat as needed. Not on medications at home. Plan He will get a repeat head CT scan later this evening. EEG is also pending. Probably home tomorrow, November 12 Admission and Anticipated Discharge Date Admission Date: November 11, 2022 Subjective Alert and oriented. Asymptomatic. Neurology entry noted. Complicated migraine is a possibility. Brain MRI negative for any evidence of CVA. Repeat head CT scan will be done later tonight. Anticipate discharge to home tomorrow, November 12 Review of Systems Review of Systems: Constitutional-no fever or chills ENT-no blurred vision, no double vision, no epistaxis, no sore throat Respiratory-no cough, no wheezing, no shortness of breath Cardiac-no palpitations, no chest pain, no syncope GI-no nausea, vomiting, diarrhea, melena, hematochezia -no urinary retention, no urinary incontinence, no dysuria, no hematuria Musculoskeletal-no joint pain, no muscle tenderness Skin-no bruising, no rashes, no pruritus Neuro-headache. Otherwise negative Psych-no depression, no anxiety Physical Exam Physical Exam: General-alert and oriented x3, no fevers, no chills HEENT-head atraumatic and normocephalic, pupils equal and reactive to light, extraocular muscles intact Neck-no lymphadenopathy or thyromegaly, trachea midline Chest-clear to auscultation percussion. No rales wheezing or rhonchi Cardiac-regular rate and rhythm, normal S1 and S2 Abdomen-normal bowel sounds, nontender, no hepatosplenomegaly Extremities-no cyanosis, clubbing, or edema Neuro-cranial nerves II through XII intact, motor and sensory function within normal limits, strength symmetrical , no focal deficits Psych-normal affect, normal mood Results & Data Results & Data Vital Signs (Past 12 Hours) Vital Signs Temp Pulse Pulse Resp BP BP BP 11/11/22 13:00 37.0 C 61 17 115/67 11/11/22 12:00 37.2 C 82 11 L 124/67 11/11/22 11:00 37.0 C 65 13 104/61 11/11/22 10:00 37.1 C 53 L 15 120/67 11/11/22 07:30 11/11/22 07:30 11/11/22 09:00 60 19 118/50 L 11/11/22 08:00 62 20 105/57 L 11/11/22 07:30 90 20 123/69 11/11/22 07:00 36.5 C 60 19 124/54 L 11/11/22 06:30 58 L 20 133/66 11/11/22 06:00 81 16 131/58 L 11/11/22 05:30 69 16 128/67 11/11/22 05:00 69 20 122/60 11/11/22 04:30 66 20 123/59 L 11/11/22 04:00 69 18 131/68 11/11/22 03:30 78 16 127/75 11/11/22 03:00 76 12 119/75 11/11/22 02:30 65 12 140/70 11/11/22 02:00 84 12 130/68 11/11/22 04:00 36.4 C L 74 22 131/68 11/11/22 02:05 36.4 C L 93 H 16 136/63 11/11/22 01:29 75 16 131/72 Pulse Ox O2 Del Method O2 Flow Rate 11/11/22 13:00 97 Room Air 11/11/22 12:00 97 Room Air 11/11/22 11:00 97 Room Air 11/11/22 10:00 97 Room Air 11/11/22 07:30 Nasal Cannula 2 11/11/22 07:30 Nasal Cannula 11/11/22 09:00 98 Room Air 11/11/22 08:00 98 Room Air 11/11/22 07:30 98 Room Air 11/11/22 07:00 99 Room Air 11/11/22 06:30 98 Nasal Cannula 2 11/11/22 06:00 98 Nasal Cannula 2 11/11/22 05:30 99 Nasal Cannula 2 11/11/22 05:00 99 Nasal Cannula 2 11/11/22 04:30 99 Nasal Cannula 2 11/11/22 04:00 98 Nasal Cannula 2 11/11/22 03:30 100 Nasal Cannula 2 11/11/22 03:00 98 Nasal Cannula 2 11/11/22 02:30 100 Room Air 11/11/22 02:00 100 Room Air 11/11/22 04:00 99 Nasal Cannula 2 11/11/22 02:05 100 Room Air 11/11/22 01:29 100 Room Air Laboratory Results 11/11/22 05:35 11/11/22 05:35 PG Care Time/CCT Total # of Minutes Spent Total Time Spent with Patient: Total time spent is greater than 50% in coordination of care (as documented) at patient's floor/unit and/or counseling patient: Coding Level of Care Code 89082 SUB INP/OBS CARE 3/50MIN Diagnoses Combined receptive and expressive aphasia R47.01 RUE weakness R29.898 Hypokalemia E87.6 Anxiety F41.9
--- NOTE | 2022-11-11 23:45 | CT Scan Report ---
Exam(s): CT HEAD Without Contrast EXAM: CT Head Without Intravenous Contrast CLINICAL HISTORY: Reason for exam: Post 24hr TNKase. TECHNIQUE: Axial computed tomography images of the head/brain without intravenous contrast. CTDI is 36.41 mGy and DLP is 537.48 mGy-cm. Automated exposure control was utilized for the study. A dose lowering technique was utilized adhering to the principles of ALARA. COMPARISON: MRI dated 11/11/[address] dated 11/10/22 FINDINGS: Brain: Unremarkable. No hemorrhage. No significant white matter disease. No edema. Ventricles: Unremarkable. No ventriculomegaly. Bones/joints: Unremarkable. No acute fracture. Soft tissues: Unremarkable. Sinuses: Unremarkable as visualized. No acute sinusitis. Mastoid air cells: Unremarkable as visualized. No mastoid effusion. IMPRESSION: Normal head/brain CT. Electronically signed by: Isidoro Padron MD 11/11/22 23:44 PM
[2022-11-12 06:01] LABS: Basophils # (auto) 0.01 K/uL (0-0.2); Basophils % (auto) 0.2 %; Eosinophils # (auto) 0.14 K/uL (0-0.50); Eosinophils % (auto) 2.9 %; Hematocrit (blood only) 43.3 % (42.0-52.0); Hemoglobin 15.8 g/dl (14.0-18.0); Immature Granulocytes # (auto) 0.01 K/uL (0.01-0.20); Immature Granulocytes % (auto) 0.2 %; Lymphocytes # (auto) 2.02 K/uL (1.2-3.4); Lymphocytes % (auto) 41.1 %; Mean Corpuscular Hemoglobin 31.3 pg (25.0-34.0); Mean Corpuscular Hgb Conc 36.5 g/dL (32.0-36.0); Mean Corpuscular Volume 85.7 fL (80.0-100.0); Mean Platelet Volume 9.7 fL (9.4-12.4); Monocytes # (auto) 0.37 K/uL (0.11-0.59); Monocytes % (auto) 7.5 %; Neutrophils # (auto) 2.36 K/uL (1.40-6.50); Neutrophils % (auto) 48.1 %; Platelet Count 196 K/uL (130-400); RDW Coefficient of Variation 11.8 % (11.5-14.5); RDW Standard Deviation 36.7 fL (36.4-46.3); Red Blood Count 5.05 M/uL (4.70-6.10); White Blood Count 4.91 K/ul (4.8-10.8)
[2022-11-12 06:08] LABS: BUN Creatinine Ratio 16.1 (10-20); Calcium 9.5 mg/dl (8.6-10.3); Creatinine Clr Calc Pharmacy 148.7 ml/min; Est GFR (Non-African American) 124.2 ml/min
--- NOTE | 2022-11-12 07:41 | Critical Care Progress Note ---
Date of Service November 12, 2022 Assessment & Plan (1) Stroke-like symptoms: (2) Anxiety: (3) Hypokalemia: (4) RUE weakness: (5) Thrombolytic therapy administered within 2 hours of onset of symptoms: (6) Combined receptive and expressive aphasia: Plan Reason Critically Ill: 22-year-old male here with a history significant for anxiety who presented with stroke-like symptoms and who was admitted to ICU for monitoring post TNKase. Follow-up CT at 24 hours demonstrated no acute findings, specifically no evidence of intracerebral hemorrhage. Recommendations: 1. Status post TNKase administration. No evidence of bleeding. Okay to disposition out of the ICU. 2. Strokelike symptoms: I agree with neurological assessment that this may represent alternative etiology such as complex migraine. EEG showed no significant abnormality. Neurology follow-up recommended. 3. Patient can be dispositioned out of the intensive care unit. His critical care issues have resolved. Critical care will sign off. Ultimate disposition per hospitalist. Admission and Anticipated Discharge Date Admission Date: November 11, 2022 Subjective Patient seen and examined. EMR reviewed. No events overnight. The patient offers no complaints this morning. He is awake alert conversant. No neurological complaints. Review of Systems Review of Systems: All systems reviewed & are unremarkable except as noted in Subjective Physical Exam Constitutional: WD/WN, vitals as above Neck: trachea midline, no thyromegaly Respiratory: normal respiratory effort, lungs clear to auscultation Cardiovascular: RRR, no murmur, no edema Gastrointestinal (Abdomen): normal bowel sounds, soft, nontender, no hepatosplenomegaly Musculoskeletal: Extremities: extremities normal to inspection Skin: no rashes, warm and dry Neurologic: Nonfocal exam Lymphatic: no cervical lymphadenopathy Results & Data Results & Data Vital Signs (Past 12 Hours) Vital Signs Temp Pulse Pulse Resp BP Pulse Ox O2 Del Method 11/12/22 06:37 60 17 103/67 97 Room Air 11/12/22 05:00 57 L 12 119/62 96 Room Air 11/12/22 04:12 36.4 C L 54 L 14 117/60 97 Room Air 11/12/22 03:00 36.4 C L 59 L 16 106/48 L 99 Room Air 11/12/22 01:00 36.4 C L 75 14 112/60 97 Room Air 04/08/23 00:00 36.4 C L 75 20 122/69 97 Room Air 11/11/22 23:00 36.4 C L 70 17 138/66 98 Room Air 11/12/22 00:00 64 11/11/22 22:00 36.9 C 75 20 123/62 97 Room Air 11/11/22 21:00 36.9 C 67 22 120/70 97 Room Air 11/11/22 20:00 36.9 C 67 18 107/56 L 97 Room Air Critical Care Results & Data Vital Signs (Past 12 Hours) Vital Signs Temp Pulse Pulse Resp BP Pulse Ox O2 Del Method 11/12/22 06:37 60 17 103/67 97 Room Air 11/12/22 05:00 57 L 12 119/62 96 Room Air 11/12/22 04:12 36.4 C L 54 L 14 117/60 97 Room Air 11/12/22 03:00 36.4 C L 59 L 16 106/48 L 99 Room Air 11/12/22 01:00 36.4 C L 75 14 112/60 97 Room Air 11/12/22 00:00 36.4 C L 75 20 122/69 97 Room Air 11/11/22 23:00 36.4 C L 70 17 138/66 98 Room Air 11/12/22 00:00 64 11/11/22 22:00 36.9 C 75 20 123/62 97 Room Air 11/11/22 21:00 36.9 C 67 22 120/70 97 Room Air 11/11/22 20:00 36.9 C 67 18 107/56 L 97 Room Air Lab & Micro Results (Past 24 Hours) RBC 5.05 M/uL (4.70-6.10) 11/12/22 WBC 4.91 K/ul (4.8-10.8) 11/12/22 Hgb 15.8 g/dl (14.0-18.0) 11/12/22 Hct 43.3 % (42.0-52.0) 11/12/22 MCV 85.7 fL (80.0-100.0) 11/12/22 MCH 31.3 pg (25.0-34.0) 11/12/22 MCHC 36.5 g/dL (32.0-36.0) H 11/12/22 RDW Standard Deviation 36.7 fL (36.4-46.3) 11/12/22 RDW Coefficient of Variation 11.8 % (11.5-14.5) 11/12/22 Plt Count 196 K/uL (130-400) 11/12/22 MPV 9.7 fL (9.4-12.4) 11/12/22 Neutrophils (%) (Auto) 48.1 % 11/12/22 Lymphocytes (%) (Auto) 41.1 % 11/12/22 Monocytes # (Auto) 0.37 K/uL (0.11-0.59) 11/12/22 Eosinophils # (Auto) 0.14 K/uL (0-0.50) 11/12/22 Immature Granulocyte % (Auto) 0.2 % 11/12/22 Neutrophils # (Auto) 2.36 K/uL (1.40-6.50) 11/12/22 Lymphocytes # (Auto) 2.02 K/uL (1.2-3.4) 11/12/22 Monocytes # (Auto) 0.37 K/uL (0.11-0.59) 11/12/22 Eosinophils # (Auto) 0.14 K/uL (0-0.50) 11/12/22 Basophils # (Auto) 0.01 K/uL (0-0.2) 11/12/22 Immature Granulocyte # (Auto) 0.01 K/uL (0.01-0.20) 3 Na 135 mmol/L (136-145) L 11/12/22 K 4.0 mmol/L (3.5-5.1) 11/12/22 Cl 103 mmol/L (98-107) 11/12/22 CO2 24 mmol/L (21-32) 11/12/22 Anion Gap 8 (3-11) 11/12/22 BUN 14 mg/dl (6-23) 11/12/22 Creatinine 0.87 mg/dl (0.6-1.4) 11/12/22 Estimated GFR ( Amer) 144.0 ml/min 11/12/22 Estimated GFR (Non-Af Amer) 124.2 ml/min 11/12/22 BUN/Creatinine Ratio 16.1 (10-20) 11/12/22 Glu 78 mg/dl (70-99(Fasting)) 11/12/22 Ca 9.5 mg/dl (8.6-10.3) 11/12/22 Calcium Level 9.5 mg/dl (8.6-10.3) 11/12/22 05:28 Diagnostic Findings (Past 24 Hours) Chest X-Ray 11/10/22 22:09 XR chest 1V portable HISTORY: neuro deficit, acute stroke suspected COMPARISON: None. FINDINGS: The lungs are clear. Cardiac silhouette is normal in size. No pleural effusions. No pneumothorax. IMPRESSION: No acute process. ACT 112: Negative or not required by law. Electronically signed by: Cuong Grigsby M.D. 11/11/2022 7:[address] 11/11/22 23:00 Exam(s): CT HEAD Without Contrast EXAM: CT Head Without Intravenous Contrast CLINICAL HISTORY: Reason for exam: Post 24hr TNKase. TECHNIQUE: Axial computed tomography images of the head/brain without intravenous contrast. CTDI is 36.41 mGy and DLP is 537.48 mGy-cm. Automated exposure control was utilized for the study. A dose lowering technique was utilized adhering to the principles of ALARA. COMPARISON: MRI dated 11/11/[address] dated 11/10/22 FINDINGS: Brain: Unremarkable. No hemorrhage. No significant white matter disease. No edema. Ventricles: Unremarkable. No ventriculomegaly. Bones/joints: Unremarkable. No acute fracture. Soft tissues: Unremarkable. Sinuses: Unremarkable as visualized. No acute sinusitis. Mastoid air cells: Unremarkable as visualized. No mastoid effusion. IMPRESSION: Normal head/brain CT. Electronically signed by: Isidoro Padron MD 11/11/22 23:44 PM I & O Totals 24 Hours 11/11/22 11/12/22 11/13/22 06:59 06:59 06:59 Intake Total 670 / 670 1940 / 1940 Output Total 900 / 900 1600 / 1600 Balance -230 / -230 340 / 340 Cumulative 11/10/22 21:56 thru 11/12/22 06:00 Intake Total 2610 Output Total 2500 Balance 110 RT Ventilator Mngmt (Last Documented) Ventilator Ordered Settings Respiratory Rate 17 11/12/22 06:37 Ventilator - PT Measurements Respiratory Rate 17 Coding Level of Care Code 91672 SUB INP/OBS CARE 2/35MIN Diagnoses Stroke-like symptoms R29.90 Anxiety F41.9 Hypokalemia E87.6 RUE weakness R29.898 Thrombolytic therapy administered within 2 hours of onset of symptoms Combined receptive and expressive aphasia R47.01
[2022-11-12] MEDS: ICU Protocol for HYPERglycemia SCH (07:58)
--- NOTE | 2022-11-12 10:24 | Discharge Summary ---
Date of Service November 12, 2022 Admission HPI Per Admitting Provider 22-year-old male past medical history significant for anxiety presented with a friend to the ER for altered mental status, slurred speech, and limb weakness. Last known well was 9:15 PM. Per friend, patient has not had any medication or illicit substance use to their knowledge today or in the recent past. In the ER patient noted to be hemodynamically stable, but with right upper extremity weakness and expressive/receptive aphasia. Stroke alert was called, case was discussed with telestroke provider Dr. Bourgeois. CT head, CTA head/neck without evidence of acute abnormality. Lab work notable for potassium of 3.0, anion gap of 15, 2+ ketonuria, UDS positive for marijuana. After discussion by ER provider and telestroke provider with patient's parents, decision was made to use TNKase in the event of an acute CVA. Hospitalist service was consulted for admission. On my interview patient still with some tripping over his words and slurring, however improved compared to signout from ER provider. States that he wonders if he "just had a bad anxiety attack or something". Reports feeling much better than he did earlier this evening. Denies any recent fevers, neck pain. Notes a headache at this time. Principal Diagnosis Complex migraine with neurological deficits Discharge Exam General-alert and oriented x3, no fevers, no chills HEENT-head atraumatic and normocephalic, pupils equal and reactive to light, extraocular muscles intact Neck-no lymphadenopathy or thyromegaly, trachea midline Chest-clear to auscultation percussion. No rales wheezing or rhonchi Cardiac-regular rate and rhythm, normal S1 and S2 Abdomen-normal bowel sounds, nontender, no hepatosplenomegaly Extremities-no cyanosis, clubbing, or edema Neuro-cranial nerves II through XII intact, motor and sensory function within normal limits, strength symmetrical , no focal deficits Psych-normal affect, normal mood Discharge Data Allergies Allergy/AdvReac Type Severity Reaction Status Date / Time No Known Allergies Allergy Unverified 11/10/22 22:24 Consultations 11/10/22 23:36 ED Decision to Admit Stat 11/11/22 02:04 Consult Cloth Washer Back Tender Routine Consult Neurology Routine Ordered Studies 11/10/22 22:09 CT angio head w con Stat CT angio neck with con Stat CT head/brain wo con Stat 11/11/22 02:37 US liver Routine 11/11/22 07:00 MRI Brain [MR brain wo/w con] Routine 11/11/22 23:00 CT head/brain wo con Routine Hospital Course (1) Combined receptive and expressive aphasia: This probably was a complicated migraine. No CVA seen on brain MRI. He did receive thrombolytic therapy. Repeat head CT scan done on November 11 in the evening was again negative. EEG is negative. Neurology consultation and recommendations appreciated. (2) RUE weakness: Resolved. Was present on admission (3) Hypokalemia: Corrected with IV supplementation. Serial labs (4) Anxiety: We will treat as needed. Not on medications at home. Plan Discharge to home today, November 12. He can return to his normal activities and return to school Total Time Total Time Spent Total Time Spent (In Minutes): 35-minute Discharge Plan Discharge Items Patient Disposition: Home - Self-Care Reason For Visit: APHASIA, RUE WEAKNESS, S/P TNKASE Discharge Diagnosis: Complicated migraine with neurological deficits Activity: Resume your previous activity Exercise/Sports: As tolerated Non-emergency contact: Primary Care Provider Call non-emergency contact if: your symptoms worsen Follow-up/Referrals: [facility] [Primary Care Provider] - Diet: Regular Addtl Attending Provider Instructions: No new medications at this time. Resume normal activities Pending Studies at Discharge: No Stand-Alone Forms: [employer], Smoking Cessation Medications and DC Order Prescriptions: No Action No Known Home Medications Discharge Orders: Discharge Order (Routine); Ordered 11/12/22 Ordered By: Wesley Ugarte Admission Data Admit Date/Time: 11/11/22 00:19 Attending Provider: Wesley Ugarte Admit Provider: Miracle Mendenhall Primary Care Provider: [facility] Other Providers: Miracle Mendenhall ; Bijan Hartley ; Hola Nieves Coding Level of Care Code 46467 INP/OBS DISCH >30 MIN Diagnoses Combined receptive and expressive aphasia R47.01 RUE weakness R29.898 Hypokalemia E87.6 Anxiety F41.9
--- NOTE | 2022-11-12 10:42 | Discharge Summary ---
Date of Service November 12, 2022 Admission HPI Per Admitting Provider 22-year-old male past medical history significant for anxiety presented with a friend to the ER for altered mental status, slurred speech, and limb weakness. Last known well was 9:15 PM. Per friend, patient has not had any medication or illicit substance use to their knowledge today or in the recent past. In the ER patient noted to be hemodynamically stable, but with right upper extremity weakness and expressive/receptive aphasia. Stroke alert was called, case was discussed with telestroke provider Dr. Bourgeois. CT head, CTA head/neck without evidence of acute abnormality. Lab work notable for potassium of 3.0, anion gap of 15, 2+ ketonuria, UDS positive for marijuana. After discussion by ER provider and telestroke provider with patient's parents, decision was made to use TNKase in the event of an acute CVA. Hospitalist service was consulted for admission. On my interview patient still with some tripping over his words and slurring, however improved compared to signout from ER provider. States that he wonders if he "just had a bad anxiety attack or something". Reports feeling much better than he did earlier this evening. Denies any recent fevers, neck pain. Notes a headache at this time. Principal Diagnosis Complicated migraine with neurological deficits Discharge Data Allergies Allergy/AdvReac Type Severity Reaction Status Date / Time No Known Allergies Allergy Unverified 11/10/22 22:24 Consultations 11/10/22 23:36 ED Decision to Admit Stat 11/11/22 02:04 Consult Form Press Operator Routine Consult Neurology Routine Ordered Studies 11/10/22 22:09 CT angio head w con Stat CT angio neck with con Stat CT head/brain wo con Stat 11/11/22 02:37 US liver Routine 11/11/22 07:00 MRI Brain [MR brain wo/w con] Routine 11/11/22 23:00 CT head/brain wo con Routine Total Time Total Time Spent Total Time Spent (In Minutes): 35 minutes Discharge Plan Discharge Items Patient Disposition: Home - Self-Care Reason For Visit: APHASIA, RUE WEAKNESS, S/P TNKASE Discharge Diagnosis: Complicated migraine with neurological deficits Activity: Resume your previous activity Exercise/Sports: As tolerated Non-emergency contact: Primary Care Provider Call non-emergency contact if: your symptoms worsen Follow-up/Referrals: Duc Awan MD [Physician] - [facility] [Primary Care Provider] - Diet: Regular Addtl Attending Provider Instructions: No new medications at this time. Resume normal activities Pending Studies at Discharge: No Stand-Alone Forms: [facility], Work/School Release, Smoking Cessation Medications and DC Order Prescriptions: New aspirin 81 mg tablet,delayed release (DR/EC) 81 mg PO DAILY Qty: 30 0RF Discharge Orders: Discharge Order (Routine); Ordered 11/12/22 Ordered By: Wesley Lagunas/Other Patient Handouts: ED Headache, Migraine, Classic Admission Data Admit Date/Time: 11/11/22 00:19 Attending Provider: Wesley Ugarte Admit Provider: Miracle Mendenhall Primary Care Provider: [facility] Other Providers: Miracle Mendenhall ; Bijan Hartley ; Hola Nieves Other Interventions: Discharge Summary Assessment (RN) Last Done: 11/12/22 10:28 Coding Level of Care Code 13123 INP/OBS DISCH >30 MIN Diagnoses
--- NOTE | 2022-11-12 10:59 | Neurology Progress Note ---
Date of Service November 12, 2022 Assessment & Plan (1) Stroke-like symptoms: (2) Thrombolytic therapy administered within 2 hours of onset of symptoms: (3) Complicated migraine: Plan: 22-year-old male presenting with strokelike episode potentially localizing to the left MCA territory, status post administration of TNKase with symptomatic resolution. Although I do have some suspicion for a stroke mimic in this patient such as complicated migraine, a TIA cannot be completely excluded. I would recommend daily low-dose aspirin, at least for the next 3 months. Hypercoagulable panel. Would also consider mobile cardiac outpatient telemetry although I think the likelihood of occult atrial fibrillation is very low in this otherwise healthy individual. The extent to which the positive THC screen factors into his current presentation is not entirely clear. There is some evidence that cannabis use increases the risk of TIA and stroke, however. I did discuss the above with the patient this morning. I can see him for a follow-up appointment in 2 to 3 weeks as previously suggested. Admission and Anticipated Discharge Date Admission Date: November 11, 2022 Subjective Follow-up for strokelike episode Patient has been clinically stable, no recurrence of headache, aphasia, or weakness. Follow-up CT of the head unremarkable, no evidence of hemorrhage or evolving infarct. Echocardiogram normal, no cardioembolic source. Patient has no specific complaints this morning. Again, no recurrence of previous symptoms. Patient's mother at bedside. Review of Systems Constitutional: no fever and no chills Eyes: no blind spots and no diplopia Neurologic: no gait abnormality, no unsteadiness, no localized weakness, no loss of sensation, no abnormal movements, no seizure-like activity, no head ache(s) and no confusion Results & Data Vital Signs (Past 12 Hours) Vital Signs Temp Pulse Pulse Resp BP Pulse Ox O2 Del Method 11/12/22 10:28 36.6 C 77 15 100/46 L 96 11/12/22 07:30 36.6 C 60 15 115/65 96 Room Air 11/12/22 06:37 60 17 103/67 97 Room Air 11/12/22 05:00 57 L 12 119/62 96 Room Air 11/12/22 04:12 36.4 C L 54 L 14 117/60 97 Room Air 11/12/22 03:00 36.4 C L 59 L 16 106/48 L 99 Room Air 11/12/22 01:00 36.4 C L 75 14 112/60 97 Room Air 11/12/22 00:00 36.4 C L 75 20 122/69 97 Room Air 11/11/22 23:00 36.4 C L 70 17 138/66 98 Room Air 11/12/22 00:00 64 Laboratory Results WBC 4.91, hemoglobin 15.8, hematocrit 43.3, platelet count 196, sodium 135, potassium 4.0, BUN 14, creatinine 0.87, glucose 78, calcium 9.5, urine toxicology screen positive for THC, confirmatory testing pending Exam (Neuro) Constitutional: well developed; no acute distress Neurologic: Oriented to:: Person, Place and Time Attention: Span Intact and Concentration Intact Speech Fluency: negative Dysarthria or Dysfluency Fund of Knowledge: Current Events, Past History and Vocabulary Cranial Nerves: Normal II, III, IV, , V, VII, VIII, IX, X, XI and XII Motor Strength: Normal Lower Extremities and Normal Upper Extremities Coordination: Normal; negative Finger-Nose Abnormal PG Care Time/CCT Total # of Minutes Spent Total Time Spent with Patient: Total time spent is greater than 50% in coordination of care (as documented) at patient's floor/unit and/or counseling patient: Coding Level of Care Code 06686 SUB INP/OBS CARE 08/31MIN Diagnoses Stroke-like symptoms R29.90 Thrombolytic therapy administered within 2 hours of onset of symptoms Complicated migraine G43.109
[2022-11-13 08:07] LABS: Marijuana Quant, GCMS Urine 34 ng/mL (<5)
== END 2022-11-12 11:13 | disposition home or self-care (01) | DRG 103 ==
LOC: ED 21:56 → 1E 11-11 00:19 → SUATTDRO 11-11 00:19 → INTOOBSV 11-11 00:19 → 1E 11-11 02:12